=== PATIENT | female | born 1980 | race Two or more races ===

== ENCOUNTER 2024-12-05 18:45 | Inpatient (IN) | payer MEDICARE, MEDICAID ==
[~2024-12-05] VITALS: Ht 157.5 cm; Wt 101.8 kg
[2024-12-05] MEDS: KETOROLAC TROMETH 30 MG/ML 1ML VIAL IM ONE (19:30)
[2024-12-05 19:56] LABS: Hematocrit 39.7 % (36.0-46.0); Hemoglobin 13.0 g/dL (12.2-16.2); Mean Corpuscular Hemoglobin 29.3 pg (28.0-32.0); Mean Corpuscular Volume 89.2 fL (80.0-100.0); Nucleated Red Blood Cells % 0.1 %
[2024-12-05 20:08] LABS: Chloride 107 mmol/L (98-107); Potassium 3.8 mmol/L (3.5-5.1); Sodium 141 mmol/L (136-145)
[2024-12-05 20:09] LABS: Anion Gap 9 (5-15); Calcium 8.9 mg/dL (8.7-10.4); Carbon Dioxide 25 mmol/L (20-31)
[2024-12-05 20:14] LABS: BUN/Creatinine Ratio 7.8 (10.0-20.0)
[2024-12-05 20:15] LABS: Blood Urea Nitrogen 6 mg/dL (9-23); Glucose 111 mg/dL (74-106)
--- NOTE | 2024-12-05 20:28 | DVH ---
Exam: CT CT AB PEL WO CON-NO ORAL OR IV History: R Flank Pain Comparison Study: CT ABD/PEL on DOS: 07/01/24 TECHNIQUE: Multidetector CT of the abdomen and pelvis without IV contrast. Axial, coronal and sagitta l multiplanar reformats were obtained from the axial data set by the technologist. Radiation Dose Information: CT Dose: CTDI volume is 25.57 mGy. Dose-length product is 3.92 mGy*cm FINDINGS: Minimal bibasilar ground-glass opacities which may represent atelectasis/mild pulmonary edema. Visual ized heart is unremarkable. Mild hepatomegaly. Otherwise, liver, spleen, pancreas and adrenal glands are unremarkable. Status pos t cholecystectomy. Kidneys, ureters and urinary bladder are unremarkable. Uterus and adnexa are unremarkable. Stomach is unremarkable. Small bowel loops are unremarkable. Appendix is unremarkable. Moderate amou nt of fecal material within the colon. Sigmoid diverticulosis with questionable minimal adjacent fat stranding. No evidence of intraperitoneal free air or free fluid. No evidence of aortic aneurysm. Mild atherosclerotic calcification of the aorta. No significant lymphadenopathy. Tiny fat containing umbilical hernia. Tiny fat containing bilateral inguinal hernias. Minimal body wa ll edema. No evidence of acute osseous abnormalities. IMPRESSION: Diverticulosis of the sigmoid with Questionable minimal adjacent fat stranding. Correlate for Possibl e mild diverticulitis. Kidneys, ureters and urinary bladder are unremarkable. Moderate amount of fecal material within the colon.
[2024-12-05 20:32] LABS: Urine Protein, UAD Negative (Negative)
--- NOTE | 2024-12-05 20:34 | ED.PDOC ---
History of Present Illness HPI Comments 44 y/o F is BIBA for c/c right back pain, which radiates Chief Complaint: Flank Pain Time Seen by MD: 19:20 Allergies: Coded Allergies: NO KNOWN ALLERGIES (Unverified , 12/05/24) Mode of Arrival: EMS X-Ray, Labs, Meds, VS Vital Signs Date Time Temp Pulse Resp B/P (MAP) Pulse Ox O2 Delivery O2 Flow Rate FiO2 12/05/24 18:56 98.7 98 18 111/61 94 98.7 Lab Test 12/05/24 20:16 12/05/24 19:40 Range/Units Urine Color Colorless Yellow Urine Clarity Clear Clear Urine pH 6.0 5.0-9.0 Urine Specific [place] 1.002 1.001-1.035 Urine Protein Negative Negative Urine Ketones Negative Negative Urine Blood Negative Negative /uL Urine Nitrite Negative Negative Urine Bilirubin Negative Negative Urine Urobilinogen Normal Negative mg/dL Urine Leukocyte Esterase Negative Negative /uL Urine Glucose 3+ H Normal mg/dL White Blood Count 6.5 4.4-10.8 10^3/uL Red Blood Count 4.45 4.0-5.20 10^6/uL Hemoglobin 13.0 12.2-16.2 g/dL Hematocrit 39.7 36.0-46.0 % Mean Corpuscular Volume 89.2 80.0-100.0 fL Mean Corpuscular Hemoglobin 29.3 28.0-32.0 pg Mean Corpuscular Hemoglobin Concent 32.9 32.0-36.0 g/dL Red Cell Distribution Width 14.7 H 11.8-14.3 % Platelet Count 203 140-450 10^3/uL Mean Platelet Volume 10.0 6.9-10.8 fL Neutrophils (%) (Auto) 60.8 37.0-80.0 % Lymphocytes (%) (Auto) 30.7 10.0-50.0 % Monocytes (%) (Auto) 6.4 0.0-12.0 % Eosinophils (%) (Auto) 1.8 0.0-7.0 % Basophils (%) (Auto) 0.3 0.0-2.0 % Neutrophils # (Auto) 4.0 1.6-8.6 10 ^3/uL Lymphocytes # (Auto) 2.0 0.4-5.4 10 ^3/uL Monocytes # (Auto) 0.4 0-1.3 10 ^3/uL Eosinophils # (Auto) 0.1 0-0.8 10 ^3/uL Basophils # (Auto) 0 0-0.2 10 ^3/uL Nucleated Red Blood Cells 0.1 % Sodium Level 141 136-145 mmol/L Potassium Level 3.8 3.5-5.1 mmol/L Chloride Level 107 98-107 mmol/L Carbon Dioxide Level 25 20-31 mmol/L Anion Gap 9 5-15 Blood Urea Nitrogen 6 L 9-23 mg/dL Creatinine 0.77 0.550-1.02 mg/dL Glomerular Filtration Rate Calc 98 >90 mL/min BUN/Creatinine Ratio 7.8 L 10.0-20.0 Serum Glucose 111 H 74-106 mg/dL Calcium Level 8.9 8.7-10.4 mg/dL SEPSIS Sepsis Screen Date sepsis recognized/suspect: Dec 05, 2024 Time Sepsis recognized/suspect: 1851 Recent Procedure: No On Antibiotic Therapy: No Respiratory Rate >20: No Heart Rate >90: Yes Temp<36 C (96.8 F) or >38.3 C: No SBP <90 or MAP <65 mmHG: No New Acute Mental Status Change: No Is the patient on CPAP, BIPAP,: No Physician Orders Ct Ab Pel Wo Con-No Oral Or Iv (12/05/24 19:24) Vital Signs Date Time Temp Pulse Resp B/P (MAP) Pulse Ox O2 Delivery O2 Flow Rate FiO2 12/05/24 18:56 98.7 98 18 111/61 94 98.7 Laboratory Tests Test 12/05/24 19:40 White Blood Count 6.5 10^3/uL (4.4-10.8) I personally scribed for KIRK CARR MD ([email or web address]) on 12/05/24 at 20:34. Electronically submitted by Hiram Hodge ([email or web address]). I personally scribed for KIRK CARR MD ([email or web address]) on 12/05/24 at 20:48. Electronically submitted by Hiram Hodge ([email or web address]). KIRK CARR MD Dec 05, 2024 20:34
--- NOTE | 2024-12-05 20:48 | ED.PDOC ---
History of Present Illness HPI Comments 44-year-old female is brought in by ambulance for chief complaint of right back pain, which radiates to her right flank and right side of abdomen, with the associated nausea. Patient endorses 3 day history of symptoms, following unprovoked and atraumatic onset. She reports 1 episode of emesis on 12/03/24 and none, today. No reported known sick contact, travel, or further pertinent history or events, with the exception of medical history of tubal ligation and "ablation." Denial of any fever, chills, urinary symptoms, or further associated symptoms. REVIEW OF SYSTEMS: General: No fever, no chills, or fatigue HEENT: No sore throat, no earache, no congestion, no neck pain. Cardiac: No chest pain. No palpitations. Lungs: No shortness of breath, no cough. GI: Right upper quadrant and right lower quadrant abdominal pain. Nausea. No vomiting, no diarrhea, no constipation. : Right flank pain. No dysuria, frequency, or urgency. No hematuria. Musculoskeletal: Right back pain. No joint pain , no joint swelling, no extremity edema. Skin: No rash, no itching. Neuro: No headache, no dizziness, no weakness PHYSICAL EXAM: General: Awake, alert and oriented. No acute distress. Skin: Skin in warm, dry and intact. Appropriate color for ethnicity. HEENT: The head is normocephalic and atraumatic. Conjunctivae are clear without exudates or hemorrhage. Sclera is non-icteric. EOM are intact. No signs of nystagmus. Eyelids are normal in appearance without swelling or lesions. Oral mucosa is pink and moist Neck: The neck is supple with normal range of motion. No JVD. Cardiac: Heart rate and rhythm are normal. No murmurs, gallops, or rubs are auscultated. Respiratory: No signs of respiratory distress. Lung sounds are clear in all lobes bilaterally without rales, rhonchi, or wheezes. Abdominal: Right flank, right upper quadrant, and right lower quadrant tenderness. Otherwise, remaining abdomen is soft, non-tender without distention, guarding or rigidity. Bowel sounds are present and normoactive in all four quadrants. Musculoskeletal: Right paraspinal lumbar tenderness. Extremities: Upper and lower extremities are atraumatic in appearance without deformity or edema. 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 Was a procedure done?: No Differential Dx Considerations may include: Differential diagnosis includes but is not limited to pyelonephritis, nephrolithiasis, AAA, musculoskeletal pain, urinary tract infection, cholecystitis, appendicitis, other X-Ray, Labs, Meds, VS Vital Signs Date Time Temp Pulse Resp B/P (MAP) Pulse Ox O2 Delivery O2 Flow Rate FiO2 12/05/24 21:19 99.2 76 14 125/72 (89) 96 99.2 12/05/24 18:56 98.7 98 18 111/61 94 98.7 Lab Test 12/05/24 20:16 12/05/24 19:40 Range/Units Urine Color Colorless Yellow Urine Clarity Clear Clear Urine pH 6.0 5.0-9.0 Urine Specific [place] 1.002 1.001-1.035 Urine Protein Negative Negative Urine Ketones Negative Negative Urine Blood Negative Negative /uL Urine Nitrite Negative Negative Urine Bilirubin Negative Negative Urine Urobilinogen Normal Negative mg/dL Urine Leukocyte Esterase Negative Negative /uL Urine Glucose 3+ H Normal mg/dL White Blood Count 6.5 4.4-10.8 10^3/uL Red Blood Count 4.45 4.0-5.20 10^6/uL Hemoglobin 13.0 12.2-16.2 g/dL Hematocrit 39.7 36.0-46.0 % Mean Corpuscular Volume 89.2 80.0-100.0 fL Mean Corpuscular Hemoglobin 29.3 28.0-32.0 pg Mean Corpuscular Hemoglobin Concent 32.9 32.0-36.0 g/dL Red Cell Distribution Width 14.7 H 11.8-14.3 % Platelet Count 203 140-450 10^3/uL Mean Platelet Volume 10.0 6.9-10.8 fL Neutrophils (%) (Auto) 60.8 37.0-80.0 % Lymphocytes (%) (Auto) 30.7 10.0-50.0 % Monocytes (%) (Auto) 6.4 0.0-12.0 % Eosinophils (%) (Auto) 1.8 0.0-7.0 % Basophils (%) (Auto) 0.3 0.0-2.0 % Neutrophils # (Auto) 4.0 1.6-8.6 10 ^3/uL Lymphocytes # (Auto) 2.0 0.4-5.4 10 ^3/uL Monocytes # (Auto) 0.4 0-1.3 10 ^3/uL Eosinophils # (Auto) 0.1 0-0.8 10 ^3/uL Basophils # (Auto) 0 0-0.2 10 ^3/uL Nucleated Red Blood Cells 0.1 % Sodium Level 141 136-145 mmol/L Potassium Level 3.8 3.5-5.1 mmol/L Chloride Level 107 98-107 mmol/L Carbon Dioxide Level 25 20-31 mmol/L Anion Gap 9 5-15 Blood Urea Nitrogen 6 L 9-23 mg/dL Creatinine 0.77 0.550-1.02 mg/dL Glomerular Filtration Rate Calc 98 >90 mL/min BUN/Creatinine Ratio 7.8 L 10.0-20.0 Serum Glucose 111 H 74-106 mg/dL Hemoglobin A1c 6.6 H <5.7 % A1C Calcium Level 8.9 8.7-10.4 mg/dL Phosphorus Level 4.0 2.4-5.1 mg/dL Magnesium Level 1.9 1.6-2.6 mg/dL Total Bilirubin 0.2 0.2-1.0 mg/dL Direct Bilirubin < 0.1 <0.3 mg/dL Aspartate Amino Transferase (AST) 18 13-40 U/L Alanine Aminotransferase (ALT) 21 7-40 U/L Alkaline Phosphatase 84 46-116 U/L Total Protein 7.1 5.7-8.2 g/dL Albumin 4.4 3.2-4.8 g/dL Lipase 36 12-53 U/L Vitamin B12 Level Pending Vitamin D 25-Hydroxy Pending Thyroid Stimulating Hormone (TSH) 0.50 L 0.55-4.78 uIU/mL Current Medications Medications (Trade) Dose Ordered Sig/Rios Route Start Time Stop Time Status Last Admin Ketorolac Tromethamine (Toradol Injection) 30 mg ONCE ONCE IM 12/05/24 19:30 12/05/24 19:31 DC 12/05/24 19:30 Metronidazole 100 ml @ 100 mls/hr ONCE ONCE IV 12/05/24 21:15 12/05/24 22:14 DC 12/06/24 02:15 Levofloxacin/ Dextrose 100 ml @ 100 mls/hr ONCE ONCE IV 12/05/24 21:15 12/05/24 22:14 DC 12/06/24 02:28 [place] [id number] Ph: [phone] DIAGNOSTIC IMAGING Diagnostic Imaging Report : [id number] Signed PATIENT: FEDERICO BURK ACCT: [id number] UNIT: [id number] : 1980 LOC: ER ROOM / BED: / AGE / SEX: 44 / F ADM STATUS: REG ER SERVICE 23 ORDERING PHYSICIAN: KIRK CARR MD PROCEDURE(s): ABPL - CT AB PEL WO CON-NO ORAL OR IV REASON: R Flank Pain ORDER NUMBER(s): [id number], ACCESSION NUMBER(s): [id number] Exam: CT CT AB PEL WO CON-NO ORAL OR IV History: R Flank Pain Comparison Study: CT ABD/PEL on DOS: 07/01/24 TECHNIQUE: Multidetector CT of the abdomen and pelvis without IV contrast. Axial, coronal and sagittal multiplanar reformats were obtained from the axial data set by the technologist. Radiation Dose Information: CT Dose: CTDI volume is 25.57 mGy. Dose-length product is 3.92 mGy*cm FINDINGS: Minimal bibasilar ground-glass opacities which may represent atelectasis/mild pulmonary edema. Visualized heart is unremarkable. Mild hepatomegaly. Otherwise, liver, spleen, pancreas and adrenal glands are unremarkable. Status post cholecystectomy. Kidneys, ureters and urinary bladder are unremarkable. Uterus and adnexa are unremarkable. Stomach is unremarkable. Small bowel loops are unremarkable. Appendix is unremarkable. Moderate amount of fecal material within the colon. Sigmoid diverticulosis with questionable minimal adjacent fat stranding. No evidence of intraperitoneal free air or free fluid. No evidence of aortic aneurysm. Mild atherosclerotic calcification of the aorta. No significant lymphadenopathy. Tiny fat containing umbilical hernia. Tiny fat containing bilateral inguinal hernias. Minimal body wall edema. No evidence of acute osseous abnormalities. IMPRESSION: Diverticulosis of the sigmoid with Questionable minimal adjacent fat stranding. Correlate for Possible mild diverticulitis. Kidneys, ureters and urinary bladder are unremarkable. Moderate amount of fecal material within the colon. ATED BY: CATALINA GODDARD DO DICTATED DATE/TIME: 12/05/242025 SIGNED BY: CATALINA GODDARD DO SIGNED DATE/TIME: 12/05/242025 CC: Time of 1ST Reevaluation: 19:22 Reevaluation 1ST: Unchanged Patient Education/Counseling: Treatment, Other (Need for admission) Family Education/Counseling: No Family Present SEPSIS Sepsis Screen Date sepsis recognized/suspect: Dec 05, 2024 Time Sepsis recognized/suspect: 1851 Recent Procedure: No On Antibiotic Therapy: No Respiratory Rate >20: No Heart Rate >90: Yes Temp<36 C (96.8 F) or >38.3 C: No SBP <90 or MAP <65 mmHG: No New Acute Mental Status Change: No Is the patient on CPAP, BIPAP,: No Physician Orders Ct Ab Pel Wo Con-No Oral Or Iv (12/05/24 19:24) Saline Lock (12/05/24 21:02) Vitamin B12 (12/05/24 22:52) Vitamin D, 25-Hydroxy (12/05/24 22:52) Vital Signs Date Time Temp Pulse Resp B/P (MAP) Pulse Ox O2 Delivery O2 Flow Rate FiO2 12/05/24 21:19 99.2 76 14 125/72 (89) 96 99.2 12/05/24 18:56 98.7 98 18 111/61 94 98.7 Laboratory Tests Test 12/05/24 19:40 White Blood Count 6.5 10^3/uL (4.4-10.8) Medications Medications Dose Ordered Sig/Rios Route Start Time Stop Time Status Last Admin Dose Admin Ketorolac Tromethamine 30 mg ONCE ONCE IM 12/05/24 19:30 12/05/24 19:31 DC 12/05/24 19:30 Levofloxacin/ Dextrose 100 ml @ 100 mls/hr ONCE ONCE IV 12/05/24 21:15 12/05/24 22:14 DC 12/06/24 02:28 Metronidazole 100 ml @ 100 mls/hr ONCE ONCE IV 12/05/24 21:15 12/05/24 22:14 DC 12/06/24 02:15 Departure 1 Departure Time of Disposition: 21:01 Impression: Primary Impression: Abdominal pain Disposition: HOME / SELF CARE / HOMELESS Condition: Stable Comments 44 year old female with right flank pain. CT scan concerning for possible diverticulitis. Patient admitted to hospitalist service for further treatment, evaluation and monitoring. Critical Care Note Critical Care Time?: No Stability Stability form required: No Heart Score Heart Score: Heart Score Response (Comments) Value History N/A 0 EKG N/A 0 Age N/A 0 Risk Factors N/A 0 Troponin N/A 0 Total 0 I personally scribed for KIRK CARR MD ([email or web address]) on 12/05/24 at 20:48. Electronically submitted by Hiram Hodge ([email or web address]). I personally scribed for KIRK CARR MD ([email or web address]) on 12/05/24 at 21:37. Electronically submitted by Hiram Hodge ([email or web address]). KIRK CARR MD Dec 05, 2024 20:48
[2024-12-05] MEDS ORDERED: DEXTROSE (50%) 50ML SYRG IV PRN (23:15)
--- NOTE | 2024-12-05 23:16 | DVHHP2 ---
History of Present Illness Reason for Visit: Abdominal pain History of Present Illness 44-year-old female presents for evaluation of abdominal pain. Patient presents with a three day history of right flank pain that radiates to her right side of the abdomen. She also reports episodes of nausea. No fever or chills. He also reports some diarrhea. No other acute complaints reported. Past Medical History CVA, diabetes mellitus, hypertension Past Surgical History Tubal ligation Family History Noncontributory Smoke: No ALCOHOL: none Drugs: None Review of Systems Review of Systems Review of systems are currently negative otherwise addressed in HPI. Allergies: Coded Allergies: NO KNOWN ALLERGIES (Unverified , 12/05/24) Medications Current Medications Medications Dose Ordered Sig/Rios Route Start Time Stop Time Status Last Admin Dose Admin Ceftriaxone Sodium 50 ml @ 100 mls/hr DAILY@09 IV 12/06/24 09:00 UNV Metronidazole 100 ml @ 100 mls/hr Q8HR IV 12/06/24 06:00 UNV Levothyroxine Sodium 150 mcg QAM@0600 PO 12/06/24 06:00 UNV Empaglifozin 10 mg DAILY PO 12/06/24 10:00 UNV Amlodipine Besylate 10 mg DAILY PO 12/06/24 10:00 UNV Losartan Potassium 50 mg DAILY PO 12/06/24 10:00 UNV Furosemide 20 mg DAILY PO 12/06/24 10:00 UNV Clonidine HCl 0.1 mg Q6HP PRN PO 12/05/24 23:15 UNV Atorvastatin Calcium 40 mg HS PO 12/06/24 22:00 UNV Pantoprazole Sodium 40 mg DAILY IV 12/06/24 10:00 UNV Diagnostic Test (Pha) 1 strip Q6HR 12/06/24 00:00 UNV Insulin Human Regular Q6HR SC 12/06/24 00:00 UNV Dextrose 50 ml UD PRN IV 12/05/24 23:15 UNV Acetaminophen/ Hydrocodone Bitart 1 tab Q4HP PRN PO 12/05/24 23:15 UNV Ondansetron HCl 4 mg Q4HP PRN IV 12/05/24 23:15 UNV Acetaminophen 650 mg Q6HP PRN PO 12/05/24 23:15 UNV Exam Vital Signs Vital Signs Date Time Temp Pulse Resp B/P (MAP) Pulse Ox O2 Delivery O2 Flow Rate FiO2 12/05/24 21:19 99.2 76 14 125/72 (57) 96 99.2 Exam Gen: 44-year-old female in mild distress. Skin: Warm, dry, normal color and texture, no rash. HEENT: Normocephalic atraumatic, mucous membranes moist and pink. Neck: Cervical and supraclavicular nodes normal without enlargement, trachea is midline, thyroid gland is normal without masses. Pulmonary: Clear to auscultation and percussion bilaterally. Cardiac: Regular rate and rhythm. No murmur Abdomen: Soft, nontender, nondistended, bowel sounds present all 4 quadrants, no guarding, no rigidity, no organomegaly. Extremities: No cyanosis, clubbing, no edema Neuro: Cranial nerves II through XII grossly intact, normal affect and speech, no focal motor deficits. Labs/Xrays ORDERING PHYSICIAN: KIRK CARR MD PROCEDURE(s): ABPL - CT AB PEL WO CON-NO ORAL OR IV REASON: R Flank Pain ORDER NUMBER(s): [id number], ACCESSION NUMBER(s): [id number] Exam: CT CT AB PEL WO CON-NO ORAL OR IV History: R Flank Pain Comparison Study: CT ABD/PEL on DOS: 07/01/24 TECHNIQUE: Multidetector CT of the abdomen and pelvis without IV contrast. Axial, coronal and sagittal multiplanar reformats were obtained from the axial data set by the technologist. Radiation Dose Information: CT Dose: CTDI volume is 25.57 mGy. Dose-length product is 3.92 mGy*cm FINDINGS: Minimal bibasilar ground-glass opacities which may represent atelectasis/mild pulmonary edema. Visualized heart is unremarkable. Mild hepatomegaly. Otherwise, liver, spleen, pancreas and adrenal glands are unremarkable. Status post cholecystectomy. Kidneys, ureters and urinary bladder are unremarkable. Uterus and adnexa are unremarkable. Stomach is unremarkable. Small bowel loops are unremarkable. Appendix is unremarkable. Moderate amount of fecal material within the colon. Sigmoid diverticulosis with questionable minimal adjacent fat stranding. No evidence of intraperitoneal free air or free fluid. No evidence of aortic aneurysm. Mild atherosclerotic calcification of the aorta. No significant lymphadenopathy. Tiny fat containing umbilical hernia. Tiny fat containing bilateral inguinal hernias. Minimal body wall edema. No evidence of acute osseous abnormalities. IMPRESSION: Diverticulosis of the sigmoid with Questionable minimal adjacent fat stranding. Correlate for Possible mild diverticulitis. Kidneys, ureters and urinary bladder are unremarkable. Moderate amount of fecal material within the colon. ATED BY: CATALINA GODDARD DO Labs Test 12/05/24 20:16 12/05/24 19:40 Range/Units Urine Color Colorless Yellow Urine Clarity Clear Clear Urine pH 6.0 5.0-9.0 Urine Specific [place] 1.002 1.001-1.035 Urine Protein Negative Negative Urine Ketones Negative Negative Urine Blood Negative Negative /uL Urine Nitrite Negative Negative Urine Bilirubin Negative Negative Urine Urobilinogen Normal Negative mg/dL Urine Leukocyte Esterase Negative Negative /uL Urine Glucose 3+ H Normal mg/dL White Blood Count 6.5 4.4-10.8 10^3/uL Red Blood Count 4.45 4.0-5.20 10^6/uL Hemoglobin 13.0 12.2-16.2 g/dL Hematocrit 39.7 36.0-46.0 % Mean Corpuscular Volume 89.2 80.0-100.0 fL Mean Corpuscular Hemoglobin 29.3 28.0-32.0 pg Mean Corpuscular Hemoglobin Concent 32.9 32.0-36.0 g/dL Red Cell Distribution Width 14.7 H 11.8-14.3 % Platelet Count 203 140-450 10^3/uL Mean Platelet Volume 10.0 6.9-10.8 fL Neutrophils (%) (Auto) 60.8 37.0-80.0 % Lymphocytes (%) (Auto) 30.7 10.0-50.0 % Monocytes (%) (Auto) 6.4 0.0-12.0 % Eosinophils (%) (Auto) 1.8 0.0-7.0 % Basophils (%) (Auto) 0.3 0.0-2.0 % Neutrophils # (Auto) 4.0 1.6-8.6 10 ^3/uL Lymphocytes # (Auto) 2.0 0.4-5.4 10 ^3/uL Monocytes # (Auto) 0.4 0-1.3 10 ^3/uL Eosinophils # (Auto) 0.1 0-0.8 10 ^3/uL Basophils # (Auto) 0 0-0.2 10 ^3/uL Nucleated Red Blood Cells 0.1 % Sodium Level 141 136-145 mmol/L Potassium Level 3.8 3.5-5.1 mmol/L Chloride Level 107 98-107 mmol/L Carbon Dioxide Level 25 20-31 mmol/L Anion Gap 9 5-15 Blood Urea Nitrogen 6 L 9-23 mg/dL Creatinine 0.77 0.550-1.02 mg/dL Glomerular Filtration Rate Calc 98 >90 mL/min BUN/Creatinine Ratio 7.8 L 10.0-20.0 Serum Glucose 111 H 74-106 mg/dL Calcium Level 8.9 8.7-10.4 mg/dL SEPSIS Sepsis Screen Date sepsis recognized/suspect: Dec 05, 2024 Time Sepsis recognized/suspect: 1851 Recent Procedure: No On Antibiotic Therapy: No Respiratory Rate >20: No Heart Rate >90: Yes Temp<36 C (96.8 F) or >38.3 C: No SBP <90 or MAP <65 mmHG: No New Acute Mental Status Change: No Is the patient on CPAP, BIPAP,: No Physician Orders Ct Ab Pel Wo Con-No Oral Or Iv (12/05/24 19:24) Saline Lock (12/05/24 21:02) Vitamin B12 (12/05/24 22:52) Vitamin D, 25-Hydroxy (12/05/24 22:52) Thyroid Stimulating Hormone (12/05/24 22:52) Hemoglobin A1c (12/05/24 22:52) Phosphorus (12/05/24 22:52) Magnesium (12/05/24 22:52) Lipase (12/05/24 22:52) Lactic Acid W/ Reflex Order (12/05/24 22:52) Hepatic Panel (12/05/24 19:40) Ceftriaxone 1gm/50ml (Rocephin) (12/06/24 09:00) Metronidazole 500mg/100ml (Flagyl 500mg/ (12/06/24 06:00) * Gi Dvh Binder Operator (12/05/24 23:01) Levothyroxine Tablet (Synthroid Tablet) (12/06/24 06:00) Empagliflozin (Jardiance) (12/06/24 10:00) Amlodipine Tablet (Norvasc Tablet) (12/06/24 10:00) Losartan Tablet (Cozaar Tablet) (12/06/24 10:00) Furosemide Tablet (Lasix Tablet) (12/06/24 10:00) Clonidine Hcl Tablet (Catapres Tablet) (12/05/24 23:15) Atorvastatin (Lipitor) (12/06/24 22:00) Pantoprazole (Protonix) (12/06/24 10:00) Pantoprazole (Protonix) (12/05/24 23:15) Stool Bacterial Culture (12/05/24 23:01) Basic Metabolic Panel (12/06/24 04:00) Glucose Blood (Accu-Chek Comfort Curve T (12/06/24 00:00) Insulin R (Human) (Insulin R) (12/06/24 00:00) Dextrose 50% Syringe (12/05/24 23:15) Admit (12/05/24 23:01) Hydrocodone-Acet 5/325mg Tab (Dubois 5/32 (12/05/24 23:15) Ondansetron Hcl (Zofran) (12/05/24 23:15) Complete Blood Count (12/06/24 04:00) Condition: Stable (12/05/24 23:01) Acetaminophen Tablet (Tylenol Tablet) (12/05/24 23:15) Clear Liq Diet (12/06/24 Breakfast) Bedrest With Bathroom Privileg (12/05/24 23:01) Vital Signs Date Time Temp Pulse Resp B/P (MAP) Pulse Ox O2 Delivery O2 Flow Rate FiO2 12/05/24 21:19 99.2 76 14 125/72 (89) 96 99.2 12/05/24 18:56 98.7 98 18 111/61 94 98.7 Laboratory Tests Test 12/05/24 19:40 White Blood Count 6.5 10^3/uL (4.4-10.8) Medications Medications Dose Ordered Sig/Rios Route Start Time Stop Time Status Last Admin Dose Admin Ketorolac Tromethamine 30 mg ONCE ONCE IM 12/05/24 19:30 12/05/24 19:31 DC 12/05/24 19:30 30 MG Assessment/Plan Assessment/Plan Assessment Acute abdominal pain ? Acute diverticulitis Diabetes mellitus History of CVA with left-sided deficits Morbid obesity Hypertension Plan Admit the patient to Med surge to the hospitalist GI consult Clear liquid diet Pain management Rocephin/Flagyl Resume home medications Continue treatment per orders Plan discussed with: Patient My Orders Orders - FLOR ANDERS AGACNP Procedure Category Date Status Time Ceftriaxone 1gm/50ml PHA 12/06/24 Logged (Rocephin) 09:00 Metronidazole PHA 12/06/24 Logged 500mg/100ml (Flagyl 06:00 * Gi Dvh Binder Operator CONS 12/05/24 Transmitted 23:01 Levothyroxine Tablet PHA 12/06/24 Logged (Synthroid Tablet) 06:00 Empagliflozin PHA 12/06/24 Logged (Jardiance) 10:00 Amlodipine Tablet PHA 12/06/24 Logged (Norvasc Tablet) 10:00 Losartan Tablet PHA 12/06/24 Logged (Cozaar Tablet) 10:00 Furosemide Tablet PHA 12/06/24 Logged (Lasix Tablet) 10:00 Clonidine Hcl Tablet PHA 12/05/24 Logged (Catapres Tablet) 23:15 Atorvastatin (Lipitor) PHA 12/06/24 Logged 22:00 Pantoprazole PHA 12/06/24 Logged (Protonix) 10:00 Pantoprazole PHA 12/05/24 Logged (Protonix) 23:15 Stool Bacterial GILMER 12/05/24 Logged Culture 23:01 Basic Metabolic Panel LAB 12/06/24 Verified 04:00 Glucose Blood PHA 12/06/24 Logged (Accu-Chek Comfort 00:00 Insulin R (Human) PHA 12/06/24 Logged (Insulin R) 00:00 Dextrose 50% Syringe PHA 12/05/24 Logged 23:15 Admit ADMIT 12/05/24 Transmitted 23:01 Hydrocodone-Acet PHA 12/05/24 Logged 5/325mg Tab (Dubois 23:15 Ondansetron Hcl PHA 12/05/24 Logged (Zofran) 23:15 Complete Blood Count LAB 12/06/24 Verified 04:00 Condition: Stable [place]O 12/05/24 In Process 23:01 Acetaminophen Tablet PHA 12/05/24 Logged (Tylenol Tablet) 23:15 Clear Liq Diet DIET 12/06/24 Transmitted Breakfast Bedrest With Bathroom CAYETANO 12/05/24 In Process Privileg 23:01 Date of Service: Dec 05, 2024 Billing Provider: FLOR ANDERS Common Visit Codes: [id number] INP/OBS CARE (HIGH) FLOR ANDERS Dec 05, 2024 23:16
[2024-12-05 23:29] LABS: Alanine Aminotransferase 21 U/L (7-40); Albumin 4.4 g/dL (3.2-4.8); Alkaline Phosphatase 84 U/L (46-116); Magnesium 1.9 mg/dL (1.6-2.6); Total Protein 7.1 g/dL (5.7-8.2)
[2024-12-05 23:37] LABS: Bilirubin, Direct < 0.1 mg/dL (<0.3); Bilirubin, Total 0.2 mg/dL (0.2-1.0)
[2024-12-05 23:48] LABS: Lipase 36 U/L (12-53)
[2024-12-06] MEDS: ACCU-CHEK COMFORT CURVE STRIP VI SCH (01:11)
[2024-12-06] MEDS: InsuLIN REG 1unit/0.01ml Soln (100units/ml) SC SCH (01:38)
[2024-12-06] MEDS: PANTOPRAZOLE 40 MG/10 ML VIAL INJ IV ONE (02:18)
[2024-12-06] MEDS: HYDROcodone-ACET 5/325MG TAB PO PRN (05:38)
[2024-12-06] MEDS: ACETAMINOPHEN 325 MG TAB PO PRN (05:38)
[2024-12-06] MEDS: LEVOTHYROXINE SODIUM 50 MCG TAB PO SCH (06:00)
[2024-12-06] MEDS: ONDANSETRON HCL 4 MG/2 ML VIAL IV PRN (07:12)
[2024-12-06 08:16] LABS: Anion Gap 12 (5-15); Carbon Dioxide 23 mmol/L (20-31); Chloride 103 mmol/L (98-107); Potassium 4.9 mmol/L (3.5-5.1); Sodium 138 mmol/L (136-145)
[2024-12-06 08:17] LABS: Calcium 9.1 mg/dL (8.7-10.4)
[2024-12-06 08:20] LABS: Hematocrit 42.1 % (36.0-46.0); Hemoglobin 13.9 g/dL (12.2-16.2); Mean Corpuscular Hemoglobin 29.6 pg (28.0-32.0); Mean Corpuscular Volume 89.4 fL (80.0-100.0); Nucleated Red Blood Cells % 0.1 %
[2024-12-06 08:22] LABS: BUN/Creatinine Ratio 11.5 (10.0-20.0)
[2024-12-06 08:23] LABS: Blood Urea Nitrogen 9 mg/dL (9-23); Glucose 117 mg/dL (74-106)
[2024-12-06] MEDS: FUROSEMIDE 20 MG TAB PO SCH (10:00)
[2024-12-06] MEDS: EMPAGLIFLOZIN 10 MG TAB PO SCH (10:00)
[2024-12-06] MEDS: LOSARTAN POTASSIUM 50 MG TAB PO SCH (10:00)
[2024-12-06] MEDS: PANTOPRAZOLE 40 MG/10 ML VIAL INJ IV SCH (10:17)
[2024-12-06 13:00] VITALS: BP 104/65; PULSE 73; RESP 12; TEMP 97.1; O2SAT 96
[2024-12-06 13:07] VITALS: BP 132/88; PULSE 74; TEMP 98.5; O2SAT 96
[2024-12-06] MEDS: DOCUSATE SOD 100 MG CAP PO ONE (13:15)
--- NOTE | 2024-12-06 13:15 | DVHINCON2 ---
GI Consult Consult Note GI consult note Date of Consultation: 12/06/2024 Chief Complaint: Diverticulitis Referring Physician: Sergei FITZPATRICK H&P: 44-year-old female admitted with complains of abdominal pain, for the past four days. Patient had nausea no vomiting. Denies fevers or chills. Regular bowel movements per patient. Denies history of constipation. No colonoscopy in past Past Medical History: CVA, diabetes mellitus, hypertension Past Surgical History: Tubal ligation Social History: NO smoking, drinking ETOH and use of illegal drugs. Family History: Noncontributory Review of Systems: Constitutional: no fever, chill, weight loss HEENT: no eye pain, no hearing loss, no oral lesion, no scleral icterus Heart: no chest pain, no chest pressure Lung: no cough, no dyspnea with exertion Abdomen: see HPI Physical exam: General: NAD, AAOX3 Chest: lung cadena clear to auscultation Heart: RRR, no murmur Abdomen: non-distended, mild left sided tenderness to palpation, +BS Labs: Labs Test 12/06/24 09:31 12/06/24 07:50 12/05/24 23:22 12/05/24 20:16 Range/Units POC Glucose 121 H 70-106 mg/dl White Blood Count 7.3 4.4-10.8 10^3/uL Red Blood Count 4.71 4.0-5.20 10^6/uL Hemoglobin 13.9 12.2-16.2 g/dL Hematocrit 42.1 36.0-46.0 % Mean Corpuscular Volume 89.4 80.0-100.0 fL Mean Corpuscular Hemoglobin 29.6 28.0-32.0 pg Mean Corpuscular Hemoglobin Concent 33.1 32.0-36.0 g/dL Red Cell Distribution Width 14.6 H 11.8-14.3 % Platelet Count 98 L 140-450 10^3/uL Mean Platelet Volume 10.6 6.9-10.8 fL Neutrophils (%) (Auto) 65.9 37.0-80.0 % Lymphocytes (%) (Auto) 26.0 10.0-50.0 % Monocytes (%) (Auto) 6.5 0.0-12.0 % Eosinophils (%) (Auto) 1.3 0.0-7.0 % Basophils (%) (Auto) 0.3 0.0-2.0 % Neutrophils # (Auto) 4.8 1.6-8.6 10 ^3/uL Lymphocytes # (Auto) 1.9 0.4-5.4 10 ^3/uL Monocytes # (Auto) 0.5 0-1.3 10 ^3/uL Eosinophils # (Auto) 0.1 0-0.8 10 ^3/uL Basophils # (Auto) 0 0-0.2 10 ^3/uL Nucleated Red Blood Cells 0.1 % Sodium Level 138 136-145 mmol/L Potassium Level 4.9 3.5-5.1 mmol/L Chloride Level 103 98-107 mmol/L Carbon Dioxide Level 23 20-31 mmol/L Anion Gap 12 5-15 Blood Urea Nitrogen 9 9-23 mg/dL Creatinine 0.78 0.550-1.02 mg/dL Glomerular Filtration Rate Calc 97 >90 mL/min BUN/Creatinine Ratio 11.5 10.0-20.0 Serum Glucose 117 H 74-106 mg/dL Calcium Level 9.1 8.7-10.4 mg/dL Lactic Acid Level 1.5 0.4-2.0 mmol/L Urine Color Colorless Yellow Urine Clarity Clear Clear Urine pH 6.0 5.0-9.0 Urine Specific [place] 1.002 1.001-1.035 Urine Protein Negative Negative Urine Ketones Negative Negative Urine Blood Negative Negative /uL Urine Nitrite Negative Negative Urine Bilirubin Negative Negative Urine Urobilinogen Normal Negative mg/dL Urine Leukocyte Esterase Negative Negative /uL Urine Glucose 3+ H Normal mg/dL Test 12/05/24 19:40 Range/Units Hemoglobin A1c 6.6 H <5.7 % A1C Phosphorus Level 4.0 2.4-5.1 mg/dL Magnesium Level 1.9 1.6-2.6 mg/dL Total Bilirubin 0.2 0.2-1.0 mg/dL Direct Bilirubin < 0.1 <0.3 mg/dL Aspartate Amino Transferase (AST) 18 13-40 U/L Alanine Aminotransferase (ALT) 21 7-40 U/L Alkaline Phosphatase 84 46-116 U/L Total Protein 7.1 5.7-8.2 g/dL Albumin 4.4 3.2-4.8 g/dL Lipase 36 12-53 U/L Vitamin B12 Level 312 211-911 pg/mL Vitamin D 25-Hydroxy 40.4 30.0-100 ng/mL Thyroid Stimulating Hormone (TSH) 0.50 L 0.55-4.78 uIU/mL Imaging: CT abdomen pelvis IMPRESSION: Diverticulosis of the sigmoid with Questionable minimal adjacent fat stranding. Correlate for Possible mild diverticulitis. Kidneys, ureters and urinary bladder are unremarkable. Moderate amount of fecal material within the colon. Assessment: Diverticulitis Abdominal pain Constipation Plan: Discussed with Dr. Chavez IV antibiotics Clear liquid diet Colace We will continue to follow patient Thank you for this consult Date of Service: Dec 06, 2024 Billing Provider: LADAN NAPIER Common Visit Codes: CONSULT ONLY Consultation Codes: [id number] CONSULT <60MIN LAADN NAPIER Dec 06, 2024 13:15
--- NOTE | 2024-12-06 13:35 | DVHPN2 ---
Reviewed: H&P Changes from previous H/P or p: No Changes General: Per HPI Objective Vitals Vital Signs Date Time Temp Pulse Resp B/P (MAP) Pulse Ox O2 Delivery O2 Flow Rate FiO2 12/06/24 10:00 118/100 12/06/24 00:26 98.8 79 16 95 98.8 Exam Gen: 44-year-old female in mild distress. Skin: Warm, dry, normal color and texture, no rash. HEENT: Normocephalic atraumatic, mucous membranes moist and pink. Neck: Cervical and supraclavicular nodes normal without enlargement, trachea is midline, thyroid gland is normal without masses. Pulmonary: Clear to auscultation and percussion bilaterally. Cardiac: Regular rate and rhythm. No murmur Abdomen: Soft, nontender, nondistended, bowel sounds present all 4 quadrants, no guarding, no rigidity, no organomegaly. flank TTP right Extremities: No cyanosis, clubbing, no edema Neuro: Cranial nerves II through XII grossly intact, normal affect and speech, no focal motor deficits. Medications Current Medications Medications Dose Ordered Sig/Rios Route Start Time Stop Time Status Last Admin Dose Admin Ceftriaxone Sodium 50 ml @ 100 mls/hr DAILY@09 IV 12/06/24 09:00 12/06/24 10:25 100 MLS/HR Metronidazole 100 ml @ 100 mls/hr Q8HR IV 12/06/24 06:00 12/06/24 09:45 100 MLS/HR Levothyroxine Sodium 150 mcg QAM@0600 PO 12/06/24 06:00 12/06/24 06:00 150 MCG Empaglifozin 10 mg DAILY PO 12/06/24 10:00 12/06/24 10:00 10 MG Amlodipine Besylate 10 mg DAILY PO 12/06/24 10:00 12/06/24 10:00 10 MG Losartan Potassium 50 mg DAILY PO 12/06/24 10:00 12/06/24 10:00 50 MG Furosemide 20 mg DAILY PO 12/06/24 10:00 12/06/24 10:00 20 MG Clonidine HCl 0.1 mg Q6HP PRN PO 12/05/24 23:15 Atorvastatin Calcium 40 mg HS PO 12/06/24 22:00 Pantoprazole Sodium 40 mg DAILY IV 12/06/24 10:00 12/06/24 10:17 40 MG Diagnostic Test (Pha) 1 strip Q6HR 12/06/24 00:00 12/06/24 01:11 1 STRIP Insulin Human Regular Q6HR SC 12/06/24 00:00 Dextrose 50 ml UD PRN IV 12/05/24 23:15 Acetaminophen/ Hydrocodone Bitart 1 tab Q4HP PRN PO 12/05/24 23:15 12/06/24 05:38 1 TAB Ondansetron HCl 4 mg Q4HP PRN IV 12/05/24 23:15 12/06/24 07:12 4 MG Acetaminophen 650 mg Q6HP PRN PO 12/05/24 23:15 12/06/24 05:38 650 MG Laboratory Results Laboratory Tests 12/06/24 07:50 Chemistry Test 12/05/24 19:40 12/06/24 07:50 Albumin 4.4 g/dL (3.2-4.8) Calcium Level 8.9 mg/dL (8.7-10.4) 9.1 mg/dL (8.7-10.4) Magnesium Level 1.9 mg/dL (1.6-2.6) Phosphorus Level 4.0 mg/dL (2.4-5.1) Total Protein 7.1 g/dL (5.7-8.2) Lipid panel Test 12/05/24 19:40 Lipase 36 U/L (12-53) LFT Test 12/05/24 19:40 Alanine Aminotransferase (ALT) 21 U/L (7-40) Alkaline Phosphatase 84 U/L (46-116) Aspartate Amino Transferase (AST) 18 U/L (13-40) Direct Bilirubin < 0.1 mg/dL (<0.3) Total Bilirubin 0.2 mg/dL (0.2-1.0) HgA1c, TSH Test 12/05/24 19:40 Hemoglobin A1c 6.6 % A1C (<5.7) H Thyroid Stimulating Hormone (TSH) 0.50 uIU/mL (0.55-4.78) L Urinalysis Test 12/05/24 20:16 Urine Color Colorless (Yellow) Urine Clarity Clear (Clear) Urine pH 6.0 (5.0-9.0) Urine Specific [place] 1.002 (1.001-1.035) Urine Protein Negative (Negative) Urine Ketones Negative (Negative) Urine Blood Negative /uL (Negative) Urine Nitrite Negative (Negative) Urine Bilirubin Negative (Negative) Urine Urobilinogen Normal mg/dL (Negative) Urine Leukocyte Esterase Negative /uL (Negative) Urine Glucose 3+ mg/dL (Normal) H Labs and/or images reviewed: Labs reviewed by me, Image(s) reviewed by me Assessment/Plan Assessment/Plan 44-year-old female w pmhx CVA, diabetes mellitus, hypertension presents for evaluation of abdominal pain. Patient presents with a three day history of right flank pain that radiates to her right side of the abdomen. She also reports episodes of nausea. No fever or chills. He also reports some diarrhea. No other acute complaints reported. 12/06: Patient continues to have pain, tender to palpation right flank. UA is unconcerning for UTI, CVA tenderness is unclear as it could also be musculoskeletal in that region in the right lower posterior ribs. Possible musculoskeletal versus diverticulitis although diverticulitis present have pain in flank and ribs. We will start baclofen 10 b.i.d., continue IV antibiotics for possible diverticulitis. Patient continues to have nausea. Pyelonephritis is unlikely but unable to rule out at this point as patient's pain and nausea could be evidence of pyelo but there is no evidence of UTI on urine. dx: Acute diverticulitis Flank pain, musculoskeletal likely History CVA history diabetes type 2 HTN plan: ivf iv abx prn anaelgesia prn antiemetics baclofen 10 bid medsurg full code Plan discussed with: Patient Date of Service: Dec 06, 2024 Billing Provider: SURINDER BURROWS MD Common Visit Codes: [id number] INP/OBS CARE(HIGH) SURINDER BURROWS MD Dec 06, 2024 13:35
[2024-12-06 17:01] VITALS: BP 117/69; PULSE 91; RESP 16; TEMP 98.1; O2SAT 96
[2024-12-06 21:39] VITALS: BP 121/71; PULSE 85; RESP 20; TEMP 98.1; O2SAT 95
[2024-12-06] MEDS: ATORVASTATIN 20 MG TAB PO SCH (22:04)
[2024-12-06] MEDS: BACLOFEN 10 MG TAB PO SCH (22:04)
[2024-12-07] VITALS (8 sets, daily range): BP systolic 113–155; BP diastolic 59–80; PULSE 84–123; RESP 18–20; TEMP 97.6–98.3; O2SAT 83–97
[2024-12-07 08:14] LABS: Hematocrit 39.8 % (36.0-46.0); Hemoglobin 13.5 g/dL (12.2-16.2); Mean Corpuscular Hemoglobin 29.7 pg (28.0-32.0); Mean Corpuscular Volume 87.7 fL (80.0-100.0); Nucleated Red Blood Cells % 0.1 %
[2024-12-07 08:35] LABS: Chloride 105 mmol/L (98-107); Potassium 3.6 mmol/L (3.5-5.1)
[2024-12-07 08:40] LABS: Carbon Dioxide 25 mmol/L (20-31)
[2024-12-07 08:41] LABS: Calcium 8.7 mg/dL (8.7-10.4)
[2024-12-07 08:45] LABS: Alkaline Phosphatase 87 U/L (46-116)
[2024-12-07 08:46] LABS: Total Protein 6.5 g/dL (5.7-8.2)
[2024-12-07 08:47] LABS: Alanine Aminotransferase 35 U/L (7-40); Albumin 4.1 g/dL (3.2-4.8)
[2024-12-07 08:48] LABS: Bilirubin, Total 0.3 mg/dL (0.2-1.0)
[2024-12-07 08:53] LABS: Anion Gap 10 (5-15); BUN/Creatinine Ratio 7.6 (10.0-20.0); Blood Urea Nitrogen < 5 mg/dL (9-23); Glucose 134 mg/dL (74-106); Sodium 140 mmol/L (136-145)
--- NOTE | 2024-12-07 14:12 | DVHPN2 ---
Subjective Patient complains of increase upper abdominal pain Patient has history of GERD No bowel movement for last three days Reviewed: H&P Changes from previous H/P or p: No Changes General: Per HPI Objective Vitals Vital Signs Date Time Temp Pulse Resp B/P (MAP) Pulse Ox O2 Delivery O2 Flow Rate FiO2 12/07/24 14:05 149/128 12/07/24 08:40 98.0 86 19 83 98.0 12/07/24 08:00 Room Air* 0 21 Intake/Output Intake and Output 12/07/24 07:00 Intake Total 1618 ml Balance 1618 ml Intake Oral 1518 ml IV Total 100 ml # Voids 3 General Appearance: Alert, Oriented X3, No acute distress Lungs: Clear to auscultation, Normal air movement, Other Cardiovascular: Regular rate, Normal S1, Normal S2, No murmurs, Gallops, Rubs, Other Abdomen: Normal bowel sounds, Soft, No tenderness, No hepatospenomegaly, No masses, Other (Mild epigastric tenderness) Medications Current Medications Medications Dose Ordered Sig/Rios Route Start Time Stop Time Status Last Admin Dose Admin Ceftriaxone Sodium 50 ml @ 100 mls/hr DAILY@09 IV 12/06/24 09:00 12/07/24 09:00 100 MLS/HR Metronidazole 100 ml @ 100 mls/hr Q8HR IV 12/06/24 06:00 12/07/24 14:05 100 MLS/HR Levothyroxine Sodium 150 mcg QAM@0600 PO 12/06/24 06:00 12/07/24 05:44 150 MCG Empaglifozin 10 mg DAILY PO 12/06/24 10:00 12/07/24 09:00 10 MG Amlodipine Besylate 10 mg DAILY PO 12/06/24 10:00 12/07/24 09:03 10 MG Losartan Potassium 50 mg DAILY PO 12/06/24 10:00 12/07/24 14:05 50 MG Furosemide 20 mg DAILY PO 12/06/24 10:00 12/07/24 09:02 20 MG Clonidine HCl 0.1 mg Q6HP PRN PO 12/05/24 23:15 Atorvastatin Calcium 40 mg HS PO 12/06/24 22:00 12/06/24 22:04 40 MG Pantoprazole Sodium 40 mg DAILY IV 12/06/24 10:00 12/07/24 09:00 40 MG Diagnostic Test (Pha) 1 strip Q6HR 12/06/24 00:00 12/07/24 05:44 1 STRIP Insulin Human Regular Q6HR SC 12/06/24 00:00 12/07/24 05:50 2 UNITS Dextrose 50 ml UD PRN IV 12/05/24 23:15 Acetaminophen/ Hydrocodone Bitart 1 tab Q4HP PRN PO 12/05/24 23:15 12/07/24 12:33 1 TAB Ondansetron HCl 4 mg Q4HP PRN IV 12/05/24 23:15 12/07/24 13:25 4 MG Acetaminophen 650 mg Q6HP PRN PO 12/05/24 23:15 12/06/24 05:38 650 MG Baclofen 10 mg BID PO 12/06/24 22:00 12/07/24 09:02 10 MG Docusate Sodium 100 mg BID PO 12/07/24 22:00 Laboratory Results Laboratory Tests 12/07/24 07:24 Chemistry Test 12/07/24 07:24 Albumin 4.1 g/dL (3.2-4.8) Calcium Level 8.7 mg/dL (8.7-10.4) Total Protein 6.5 g/dL (5.7-8.2) LFT Test 12/07/24 07:24 Alanine Aminotransferase (ALT) 35 U/L (7-40) Alkaline Phosphatase 87 U/L (46-116) Aspartate Amino Transferase (AST) 31 U/L (13-40) Total Bilirubin 0.3 mg/dL (0.2-1.0) Urinalysis Test 12/05/24 20:16 Urine Color Colorless (Yellow) Urine Clarity Clear (Clear) Urine pH 6.0 (5.0-9.0) Urine Specific [place] 1.002 (1.001-1.035) Urine Protein Negative (Negative) Urine Ketones Negative (Negative) Urine Blood Negative /uL (Negative) Urine Nitrite Negative (Negative) Urine Bilirubin Negative (Negative) Urine Urobilinogen Normal mg/dL (Negative) Urine Leukocyte Esterase Negative /uL (Negative) Urine Glucose 3+ mg/dL (Normal) H Assessment/Plan Assessment/Plan Diverticulitis Abdominal pain Constipation History of GERD Plan: Discussed with Dr. Chavez Protonix and Carafate Continue clear liquid diet Colace Plan discussed with: Patient, Other (RN) Date of Service: Dec 07, 2024 Billing Provider: LADAN NAPIER Common Visit Codes: [id number] INP/OBS CARE(HIGH) LADAN NAPIER Dec 07, 2024 14:12
--- NOTE | 2024-12-07 16:19 | DVHPN2 ---
Subjective Still having pain, seen at bedside today. Reviewed: H&P Changes from previous H/P or p: No Changes General: Per HPI Objective Vitals Vital Signs Date Time Temp Pulse Resp B/P (MAP) Pulse Ox O2 Delivery O2 Flow Rate FiO2 12/07/24 14:05 149/128 12/07/24 08:40 98.0 86 19 83 98.0 12/07/24 08:00 Room Air* 0 21 Intake/Output Intake and Output 12/07/24 07:00 Intake Total 1618 ml Balance 1618 ml Intake Oral 1518 ml IV Total 100 ml # Voids 3 Exam Gen: 44-year-old female in mild distress. Skin: Warm, dry, normal color and texture, no rash. HEENT: Normocephalic atraumatic, mucous membranes moist and pink. Neck: Cervical and supraclavicular nodes normal without enlargement, trachea is midline, thyroid gland is normal without masses. Pulmonary: Clear to auscultation and percussion bilaterally. Cardiac: Regular rate and rhythm. No murmur Abdomen: Soft, nontender, nondistended, bowel sounds present all 4 quadrants, no guarding, no rigidity, no organomegaly. flank TTP right Extremities: No cyanosis, clubbing, no edema Neuro: Cranial nerves II through XII grossly intact, normal affect and speech, no focal motor deficits. General Appearance: Alert, Oriented X3, No acute distress Lungs: Clear to auscultation, Normal air movement, Other Cardiovascular: Regular rate, Normal S1, Normal S2, No murmurs, Gallops, Rubs, Other Abdomen: Normal bowel sounds, Soft, No tenderness, No hepatospenomegaly, No masses, Other (Mild epigastric tenderness) Medications Current Medications Medications Dose Ordered Sig/Rios Route Start Time Stop Time Status Last Admin Dose Admin Ceftriaxone Sodium 50 ml @ 100 mls/hr DAILY@09 IV 12/06/24 09:00 12/07/24 09:00 100 MLS/HR Metronidazole 100 ml @ 100 mls/hr Q8HR IV 12/06/24 06:00 12/07/24 14:05 100 MLS/HR Levothyroxine Sodium 150 mcg QAM@0600 PO 12/06/24 06:00 12/07/24 05:44 150 MCG Empaglifozin 10 mg DAILY PO 12/06/24 10:00 12/07/24 09:00 10 MG Amlodipine Besylate 10 mg DAILY PO 12/06/24 10:00 12/07/24 09:03 10 MG Losartan Potassium 50 mg DAILY PO 12/06/24 10:00 12/07/24 14:05 50 MG Furosemide 20 mg DAILY PO 12/06/24 10:00 12/07/24 09:02 20 MG Clonidine HCl 0.1 mg Q6HP PRN PO 12/05/24 23:15 Atorvastatin Calcium 40 mg HS PO 12/06/24 22:00 12/06/24 22:04 40 MG Pantoprazole Sodium 40 mg DAILY IV 12/06/24 10:00 12/07/24 09:00 40 MG Diagnostic Test (Pha) 1 strip Q6HR 12/06/24 00:00 12/07/24 05:44 1 STRIP Insulin Human Regular Q6HR SC 12/06/24 00:00 12/07/24 05:50 2 UNITS Dextrose 50 ml UD PRN IV 12/05/24 23:15 Acetaminophen/ Hydrocodone Bitart 1 tab Q4HP PRN PO 12/05/24 23:15 12/07/24 12:33 1 TAB Ondansetron HCl 4 mg Q4HP PRN IV 12/05/24 23:15 12/07/24 13:25 4 MG Acetaminophen 650 mg Q6HP PRN PO 12/05/24 23:15 12/06/24 05:38 650 MG Baclofen 10 mg BID PO 12/06/24 22:00 12/07/24 09:02 10 MG Docusate Sodium 100 mg BID PO 12/07/24 22:00 Laboratory Results Laboratory Tests 12/07/24 07:24 Chemistry Test 12/07/24 07:24 Albumin 4.1 g/dL (3.2-4.8) Calcium Level 8.7 mg/dL (8.7-10.4) Total Protein 6.5 g/dL (5.7-8.2) LFT Test 12/07/24 07:24 Alanine Aminotransferase (ALT) 35 U/L (7-40) Alkaline Phosphatase 87 U/L (46-116) Aspartate Amino Transferase (AST) 31 U/L (13-40) Total Bilirubin 0.3 mg/dL (0.2-1.0) Urinalysis Test 12/05/24 20:16 Urine Color Colorless (Yellow) Urine Clarity Clear (Clear) Urine pH 6.0 (5.0-9.0) Urine Specific [place] 1.002 (1.001-1.035) Urine Protein Negative (Negative) Urine Ketones Negative (Negative) Urine Blood Negative /uL (Negative) Urine Nitrite Negative (Negative) Urine Bilirubin Negative (Negative) Urine Urobilinogen Normal mg/dL (Negative) Urine Leukocyte Esterase Negative /uL (Negative) Urine Glucose 3+ mg/dL (Normal) H Labs and/or images reviewed: Labs reviewed by me, Image(s) reviewed by me Assessment/Plan Assessment/Plan 44-year-old female w pmhx CVA, diabetes mellitus, hypertension presents for evaluation of abdominal pain. Patient presents with a three day history of right flank pain that radiates to her right side of the abdomen. She also reports episodes of nausea. No fever or chills. He also reports some diarrhea. No other acute complaints reported. 12/06: Patient continues to have pain, tender to palpation right flank. UA is unconcerning for UTI, CVA tenderness is unclear as it could also be musculoskeletal in that region in the right lower posterior ribs. Possible musculoskeletal versus diverticulitis although diverticulitis present have pain in flank and ribs. We will start baclofen 10 b.i.d., continue IV antibiotics for possible diverticulitis. Patient continues to have nausea. Pyelonephritis is unlikely but unable to rule out at this point as patient's pain and nausea could be evidence of pyelo but there is no evidence of UTI on urine. 12/07: We will continue musculoskeletal pain keeping baclofen 10 mg b.i.d.. Patient still continued to have pain of diverticulitis more so today we will continue IV antibiotics ceftriaxone/Flagyl, continue fluids feces in our LR, continue enroll clear liquid diet. We will reassess tomorrow to see patient's improved. If tomorrow only requiring p.o. meds to control pain may be possible discharge. dx: Acute diverticulitis Flank pain, musculoskeletal likely History CVA history diabetes type 2 HTN plan: ivf iv abx prn anaelgesia prn antiemetics baclofen 10 bid medsurg full code Plan discussed with: Patient My Orders Orders - SURINDER BURROWS MD Procedure Category Date Status Time Baclofen Tablet PHA 12/06/24 In Process (Liorisal Tablet) 22:00 Oxygen By Nasal RT 12/07/24 Transmitted Cannula 09:00 Docusate Sodium PHA 12/07/24 In Process Capsule (Colace 22:00 Date of Service: Dec 07, 2024 Billing Provider: SURINDER BURROWS MD Common Visit Codes: [id number] INP/OBS CARE(HIGH) SURINDER BURROWS MD Dec 07, 2024 16:19
[2024-12-07] MEDS: LACTATED RINGER'S 1,000 ML IV ONE (17:36)
[2024-12-07] MEDS: DOCUSATE SOD 100 MG CAP PO SCH (21:22)
[2024-12-08] VITALS (8 sets, daily range): BP systolic 128–150; BP diastolic 63–90; PULSE 84–122; RESP 16–20; TEMP 97.2–98; O2SAT 92–100
[2024-12-08 07:13] LABS: Anion Gap 9 (5-15); Carbon Dioxide 29 mmol/L (20-31); Chloride 105 mmol/L (98-107); Potassium 3.7 mmol/L (3.5-5.1); Sodium 143 mmol/L (136-145)
[2024-12-08 07:15] LABS: Calcium 8.7 mg/dL (8.7-10.4)
[2024-12-08 07:21] LABS: BUN/Creatinine Ratio 6.9 (10.0-20.0); Blood Urea Nitrogen < 5 mg/dL (9-23); Glucose 126 mg/dL (74-106)
--- NOTE | 2024-12-08 11:59 | DVHPN2 ---
Subjective Still having pain, seen at bedside today. Reviewed: H&P Changes from previous H/P or p: No Changes General: Per HPI Objective Vitals Vital Signs Date Time Temp Pulse Resp B/P (MAP) Pulse Ox O2 Delivery O2 Flow Rate FiO2 12/08/24 09:20 138/84 12/08/24 08:41 97.7 84 16 92 97.7 12/08/24 08:00 Room Air* 0 21 Intake/Output Intake and Output 12/08/24 07:00 Intake Total 1149 ml Output Total 850 ml Balance 299 ml Intake Oral 899 ml IV Total 250 ml Output Urine Total 850 ml # Voids 1 Exam Gen: 44-year-old female in mild distress. Skin: Warm, dry, normal color and texture, no rash. HEENT: Normocephalic atraumatic, mucous membranes moist and pink. Neck: Cervical and supraclavicular nodes normal without enlargement, trachea is midline, thyroid gland is normal without masses. Pulmonary: Clear to auscultation and percussion bilaterally. Cardiac: Regular rate and rhythm. No murmur Abdomen: Soft, nontender, nondistended, bowel sounds present all 4 quadrants, no guarding, no rigidity, no organomegaly. flank TTP right Extremities: No cyanosis, clubbing, no edema Neuro: Cranial nerves II through XII grossly intact, normal affect and speech, no focal motor deficits. General Appearance: Alert, Oriented X3, No acute distress Lungs: Clear to auscultation, Normal air movement, Other Cardiovascular: Regular rate, Normal S1, Normal S2, No murmurs, Gallops, Rubs, Other Abdomen: Normal bowel sounds, Soft, No tenderness, No hepatospenomegaly, No masses, Other (Mild epigastric tenderness) Medications Current Medications Medications Dose Ordered Sig/Rios Route Start Time Stop Time Status Last Admin Dose Admin Ceftriaxone Sodium 50 ml @ 100 mls/hr DAILY@09 IV 12/06/24 09:00 12/08/24 09:19 100 MLS/HR Metronidazole 100 ml @ 100 mls/hr Q8HR IV 12/06/24 06:00 12/08/24 06:53 100 MLS/HR Levothyroxine Sodium 150 mcg QAM@0600 PO 12/06/24 06:00 12/08/24 06:53 150 MCG Empaglifozin 10 mg DAILY PO 12/06/24 10:00 12/08/24 09:20 10 MG Amlodipine Besylate 10 mg DAILY PO 12/06/24 10:00 12/08/24 09:20 10 MG Losartan Potassium 50 mg DAILY PO 12/06/24 10:00 12/08/24 09:18 50 MG Furosemide 20 mg DAILY PO 12/06/24 10:00 12/08/24 09:19 20 MG Clonidine HCl 0.1 mg Q6HP PRN PO 12/05/24 23:15 Atorvastatin Calcium 40 mg HS PO 12/06/24 22:00 12/07/24 21:22 40 MG Pantoprazole Sodium 40 mg DAILY IV 12/06/24 10:00 12/08/24 09:16 40 MG Diagnostic Test (Pha) 1 strip Q6HR 12/06/24 00:00 12/08/24 11:32 1 STRIP Insulin Human Regular Q6HR SC 12/06/24 00:00 12/08/24 11:36 2 UNITS Dextrose 50 ml UD PRN IV 12/05/24 23:15 Acetaminophen/ Hydrocodone Bitart 1 tab Q4HP PRN PO 12/05/24 23:15 12/08/24 09:17 1 TAB Ondansetron HCl 4 mg Q4HP PRN IV 12/05/24 23:15 12/07/24 13:25 4 MG Acetaminophen 650 mg Q6HP PRN PO 12/05/24 23:15 12/06/24 05:38 650 MG Baclofen 10 mg BID PO 12/06/24 22:00 12/08/24 09:19 10 MG Docusate Sodium 100 mg BID PO 12/07/24 22:00 12/08/24 09:19 100 MG Laboratory Results Laboratory Tests 12/07/24 07:24 12/08/24 06:31 Chemistry Test 12/08/24 06:31 Calcium Level 8.7 mg/dL (8.7-10.4) Urinalysis Test 12/05/24 20:16 Urine Color Colorless (Yellow) Urine Clarity Clear (Clear) Urine pH 6.0 (5.0-9.0) Urine Specific [place] 1.002 (1.001-1.035) Urine Protein Negative (Negative) Urine Ketones Negative (Negative) Urine Blood Negative /uL (Negative) Urine Nitrite Negative (Negative) Urine Bilirubin Negative (Negative) Urine Urobilinogen Normal mg/dL (Negative) Urine Leukocyte Esterase Negative /uL (Negative) Urine Glucose 3+ mg/dL (Normal) H Labs and/or images reviewed: Labs reviewed by me, Image(s) reviewed by me Assessment/Plan Assessment/Plan 44-year-old female w pmhx CVA, diabetes mellitus, hypertension presents for evaluation of abdominal pain. Patient presents with a three day history of right flank pain that radiates to her right side of the abdomen. She also reports episodes of nausea. No fever or chills. He also reports some diarrhea. No other acute complaints reported. 12/06: Patient continues to have pain, tender to palpation right flank. UA is unconcerning for UTI, CVA tenderness is unclear as it could also be musculoskeletal in that region in the right lower posterior ribs. Possible musculoskeletal versus diverticulitis although diverticulitis present have pain in flank and ribs. We will start baclofen 10 b.i.d., continue IV antibiotics for possible diverticulitis. Patient continues to have nausea. Pyelonephritis is unlikely but unable to rule out at this point as patient's pain and nausea could be evidence of pyelo but there is no evidence of UTI on urine. 12/07: We will continue musculoskeletal pain keeping baclofen 10 mg b.i.d.. Patient still continued to have pain of diverticulitis more so today we will continue IV antibiotics ceftriaxone/Flagyl, continue fluids feces in our LR, continue enroll clear liquid diet. We will reassess tomorrow to see patient's improved. If tomorrow only requiring p.o. meds to control pain may be possible discharge. 12/08: Patient continues to have pain we will ensure patient is sitting PPI IV b.i.d., and Carafate 100 mg twice daily. Continue antibiotics. Continue treatment for diverticulitis. We will monitor for pain tomorrow. dx: Acute diverticulitis Flank pain, musculoskeletal likely History CVA history diabetes type 2 HTN plan: ivf iv abx prn anaelgesia prn antiemetics baclofen 10 bid medsurg full code Plan discussed with: Patient My Orders Orders - SURINDER BURROWS MD Procedure Category Date Status Time Docusate Sodium PHA 12/07/24 In Process Capsule (Colace 22:00 Date of Service: Dec 08, 2024 Billing Provider: SURINDER BURROWS MD Common Visit Codes: [id number] INP/OBS CARE(HIGH) SURINDER BURROWS MD Dec 08, 2024 11:59
--- NOTE | 2024-12-08 15:18 | DVHPN2 ---
Subjective Patient continues to complain of epigastric pain Patient has history of GERD No bowel movement for last four days Reviewed: H&P Changes from previous H/P or p: No Changes General: Per HPI Objective Vitals Vital Signs Date Time Temp Pulse Resp B/P (MAP) Pulse Ox O2 Delivery O2 Flow Rate FiO2 12/08/24 13:00 97.8 95 18 130/90 (103) 97 97.8 12/08/24 08:00 Room Air* 0 21 Intake/Output Intake and Output 12/08/24 07:00 Intake Total 1149 ml Output Total 850 ml Balance 299 ml Intake Oral 899 ml IV Total 250 ml Output Urine Total 850 ml # Voids 1 General Appearance: Alert, Oriented X3, No acute distress Lungs: Clear to auscultation Cardiovascular: Regular rate, Normal S1, Normal S2, No murmurs, Gallops, Rubs, Other Abdomen: Normal bowel sounds, Soft, No tenderness, No hepatospenomegaly, No masses, Other (Mild epigastric tenderness) Medications Current Medications Medications Dose Ordered Sig/Rios Route Start Time Stop Time Status Last Admin Dose Admin Ceftriaxone Sodium 50 ml @ 100 mls/hr DAILY@09 IV 12/06/24 09:00 12/08/24 09:19 100 MLS/HR Metronidazole 100 ml @ 100 mls/hr Q8HR IV 12/06/24 06:00 12/08/24 13:58 100 MLS/HR Levothyroxine Sodium 150 mcg QAM@0600 PO 12/06/24 06:00 12/08/24 06:53 150 MCG Empaglifozin 10 mg DAILY PO 12/06/24 10:00 12/08/24 09:20 10 MG Amlodipine Besylate 10 mg DAILY PO 12/06/24 10:00 12/08/24 09:20 10 MG Losartan Potassium 50 mg DAILY PO 12/06/24 10:00 12/08/24 09:18 50 MG Furosemide 20 mg DAILY PO 12/06/24 10:00 12/08/24 09:19 20 MG Clonidine HCl 0.1 mg Q6HP PRN PO 12/05/24 23:15 Atorvastatin Calcium 40 mg HS PO 12/06/24 22:00 12/07/24 21:22 40 MG Pantoprazole Sodium 40 mg DAILY IV 12/06/24 10:00 12/08/24 09:16 40 MG Diagnostic Test (Pha) 1 strip Q6HR 12/06/24 00:00 12/08/24 11:32 1 STRIP Insulin Human Regular Q6HR SC 12/06/24 00:00 12/08/24 11:36 2 UNITS Dextrose 50 ml UD PRN IV 12/05/24 23:15 Acetaminophen/ Hydrocodone Bitart 1 tab Q4HP PRN PO 12/05/24 23:15 12/08/24 14:01 1 TAB Ondansetron HCl 4 mg Q4HP PRN IV 12/05/24 23:15 12/08/24 14:09 4 MG Acetaminophen 650 mg Q6HP PRN PO 12/05/24 23:15 12/06/24 05:38 650 MG Baclofen 10 mg BID PO 12/06/24 22:00 12/08/24 09:19 10 MG Docusate Sodium 100 mg BID PO 12/07/24 22:00 12/08/24 09:19 100 MG Laboratory Results Laboratory Tests 12/07/24 07:24 12/08/24 06:31 Chemistry Test 12/08/24 06:31 Calcium Level 8.7 mg/dL (8.7-10.4) Urinalysis Test 12/05/24 20:16 Urine Color Colorless (Yellow) Urine Clarity Clear (Clear) Urine pH 6.0 (5.0-9.0) Urine Specific [place] 1.002 (1.001-1.035) Urine Protein Negative (Negative) Urine Ketones Negative (Negative) Urine Blood Negative /uL (Negative) Urine Nitrite Negative (Negative) Urine Bilirubin Negative (Negative) Urine Urobilinogen Normal mg/dL (Negative) Urine Leukocyte Esterase Negative /uL (Negative) Urine Glucose 3+ mg/dL (Normal) H Labs and/or images reviewed: Labs reviewed by me, Image(s) reviewed by me Assessment/Plan Assessment/Plan Diverticulitis Abdominal pain Constipation History of GERD Plan: Discussed with Dr. Chavez Protonix and Carafate Continue clear liquid diet MiraLax Full liquid diet Plan discussed with: Patient My Orders Orders - LADAN NAPIER Procedure Category Date Status Time Full Liq Diet DIET 12/08/24 Verified Dinner Polyethylene Glycol PHA 12/08/24 Verified 17g Powder (Miralax 15:30 Date of Service: Dec 08, 2024 Billing Provider: LADAN NAPIER Common Visit Codes: [id number] INP/OBS CARE(HIGH), CONSULT ONLY LADAN NAPIER Dec 08, 2024 15:18
[2024-12-08] MEDS: POLYETHYLENE GLYCOL 17 GM PWDR PO ONE (17:43)
[2024-12-08] MEDS: TEMAZEPAM 15 MG CAP PO ONE (22:24)
[2024-12-08] MEDS: SODIUM CHLORIDE 0.9% 500 ML IV ONE (22:24)
[2024-12-09] VITALS (8 sets, daily range): BP systolic 117–163; BP diastolic 64–90; PULSE 77–107; RESP 16–20; TEMP 98.2–98.6; O2SAT 93–100
[2024-12-09] MEDS ORDERED: LEVO150T10 PO (09:02)
[2024-12-09] MEDS ORDERED: LOSA-534 PO (09:02)
[2024-12-09] MEDS ORDERED: FENO54TA4 PO (09:02)
[2024-12-09] MEDS ORDERED: HAL5T PO (09:02)
[2024-12-09] MEDS ORDERED: METF-370 PO (09:02)
[2024-12-09] MEDS ORDERED: CLON0.1T PO (09:02)
[2024-12-09] MEDS ORDERED: AMLO1TAB23 PO (09:02)
[2024-12-09] MEDS ORDERED: SENN-105 PO (09:02)
[2024-12-09] MEDS ORDERED: EMPA1TAB PO (09:02)
[2024-12-09] MEDS ORDERED: CITA-77 PO (09:02)
[2024-12-09] MEDS ORDERED: DESM0.2T17 PO (09:02)
[2024-12-09] MEDS ORDERED: FURO20TA4 PO (09:02)
[2024-12-09] MEDS ORDERED: BENZ1TAB6 PO (09:03)
[2024-12-09] MEDS ORDERED: ASPI-325 PO (09:03)
[2024-12-09] MEDS ORDERED: QUET400T13 PO (09:03)
--- NOTE | 2024-12-09 10:30 | DVH ---
Indication: ABDOMINAL PAIN Technique: CT axial images of the abdomen and pelvis are obtained without contrast. Coronal and sagit radha reformats were obtained. Radiation Dose Information: CTDI volume is 23.81 mGy. Dose-length product is 1287 mGy*cm Comparison: CT CT AB PEL WO CON-NO ORAL OR IV on DOS: 12/05/24, CT ABD/PEL on DOS: 07/01/24 FINDINGS: There is limited interpretation of the abdomen and pelvis without administration of intravenous contr ast. The lung bases demonstrate no pleural effusion. Adrenal glands, spleen, pancreas unremarkable in shape. Cholecystectomy. Liver unremarkable in shap e. No hydronephrosis/ nephrolithiasis. Stomach partially distended. Small bowel loops are normal in caliber. Colonic diverticular disease. Moderate volume stool within the colon. Normal appendix. Abdominal aortic atherosclerotic disease. Bladder partially distended. No free pelvic fluid. No ingui nal lymphadenopathy. [id number] bilateral sacroiliac degenerative joint disease. Left iliac bone sclerotic lesion m easuring 1.9 cm. 7 mm right sacral sclerotic lesion Moderate to advanced lumbar degenerative disc dis ease most pronounced at L4-5. Moderate lumbar facet hypertrophic changes. IMPRESSION: Limited evaluation without contrast. Colonic diverticular disease. No hydronephrosis /nephrolithiasis. Left iliac sclerotic lesion measuring 1.9 cm. 7 mm right sacral sclerotic lesion. Differential consid erations include bone island, bone infarct, osteoblastic metastases. Correlate with clinical history and risk factors. Moderate to advanced lumbar degenerative disc disease. Other findings as described.
[2024-12-09] MEDS: PANTOPRAZOLE 40 MG/10 ML VIAL INJ IV SCH (12:51)
--- NOTE | 2024-12-09 15:14 | DVHPN2 ---
Subjective Patient admits to feeling better Patient has history of GERD No bowel movement for last five days Reviewed: H&P Changes from previous H/P or p: No Changes General: Per HPI Objective Vitals Vital Signs Date Time Temp Pulse Resp B/P (MAP) Pulse Ox O2 Delivery O2 Flow Rate FiO2 12/09/24 14:27 131/70 12/09/24 12:58 98.4 86 17 100 98.4 12/09/24 08:00 Nasal Cannula* 3 32 Intake/Output Intake and Output 12/09/24 07:00 Intake Total 1550 ml Balance 1550 ml Intake Oral 600 ml IV Total 950 ml # Voids 7 Exam General: NAD, AAOX3 Chest: lung cadena clear to auscultation Heart: RRR, no murmur Abdomen: non-distended, mild left sided tenderness to palpation, +BS General Appearance: Alert, Oriented X3, No acute distress Lungs: Clear to auscultation Cardiovascular: Regular rate, Normal S1, Normal S2, No murmurs, Gallops, Rubs, Other Abdomen: Normal bowel sounds, Soft, No tenderness, No hepatospenomegaly, No masses, Other (Mild epigastric tenderness) Medications Current Medications Medications Dose Ordered Sig/Rios Route Start Time Stop Time Status Last Admin Dose Admin Ceftriaxone Sodium 50 ml @ 100 mls/hr DAILY@09 IV 12/06/24 09:00 12/09/24 11:14 100 MLS/HR Metronidazole 100 ml @ 100 mls/hr Q8HR IV 12/06/24 06:00 12/09/24 14:21 100 MLS/HR Levothyroxine Sodium 150 mcg QAM@0600 PO 12/06/24 06:00 12/09/24 05:58 150 MCG Empaglifozin 10 mg DAILY PO 12/06/24 10:00 12/09/24 11:18 10 MG Amlodipine Besylate 10 mg DAILY PO 12/06/24 10:00 12/09/24 11:18 10 MG Losartan Potassium 50 mg DAILY PO 12/06/24 10:00 12/09/24 14:27 50 MG Furosemide 20 mg DAILY PO 12/06/24 10:00 12/09/24 11:17 20 MG Clonidine HCl 0.1 mg Q6HP PRN PO 12/05/24 23:15 Atorvastatin Calcium 40 mg HS PO 12/06/24 22:00 12/08/24 21:01 40 MG Diagnostic Test (Pha) 1 strip Q6HR 12/06/24 00:00 12/09/24 12:51 1 STRIP Insulin Human Regular Q6HR SC 12/06/24 00:00 12/09/24 12:58 3 UNITS Dextrose 50 ml UD PRN IV 12/05/24 23:15 Acetaminophen/ Hydrocodone Bitart 1 tab Q4HP PRN PO 12/05/24 23:15 12/08/24 14:01 1 TAB Ondansetron HCl 4 mg Q4HP PRN IV 12/05/24 23:15 12/08/24 19:53 4 MG Acetaminophen 650 mg Q6HP PRN PO 12/05/24 23:15 12/06/24 05:38 650 MG Baclofen 10 mg BID PO 12/06/24 22:00 12/09/24 11:15 10 MG Docusate Sodium 100 mg BID PO 12/07/24 22:00 12/09/24 11:15 100 MG Pantoprazole Sodium 40 mg BID IV 12/09/24 10:00 12/09/24 12:51 40 MG Laboratory Results Laboratory Tests 12/07/24 07:24 12/08/24 06:31 Urinalysis Test 12/05/24 20:16 Urine Color Colorless (Yellow) Urine Clarity Clear (Clear) Urine pH 6.0 (5.0-9.0) Urine Specific [place] 1.002 (1.001-1.035) Urine Protein Negative (Negative) Urine Ketones Negative (Negative) Urine Blood Negative /uL (Negative) Urine Nitrite Negative (Negative) Urine Bilirubin Negative (Negative) Urine Urobilinogen Normal mg/dL (Negative) Urine Leukocyte Esterase Negative /uL (Negative) Urine Glucose 3+ mg/dL (Normal) H CT abdomen pelvis IMPRESSION: Limited evaluation without contrast. Colonic diverticular disease. No hydronephrosis /nephrolithiasis. Left iliac sclerotic lesion measuring 1.9 cm. 7 mm right sacral sclerotic lesion. Differential considerations include bone island, bone infarct, osteoblastic metastases. Correlate with clinical history and risk factors. Moderate to advanced lumbar degenerative disc disease. Other findings as described. Assessment/Plan Assessment/Plan Diverticulitis Abdominal pain Constipation History of GERD Plan: Discussed with Dr. Chavez Protonix and Carafate Continue clear liquid diet MiraLax Full liquid diet We will continue to monitor patient Plan discussed with: Patient, Other (Dr. Brice) My Orders Orders - LADAN NAPIER Procedure Category Date Status Time Full Liq Diet DIET 12/08/24 Transmitted Dinner Date of Service: Dec 09, 2024 Billing Provider: LADAN NAPIER Common Visit Codes: [id number] INP/OBS CARE(HIGH) LADAN NAPIER Dec 09, 2024 15:14
--- NOTE | 2024-12-09 17:46 | DVHPN2 ---
Subjective Still having pain, seen at bedside today. Reviewed: H&P Changes from previous H/P or p: No Changes General: Per HPI Objective Vitals Vital Signs Date Time Temp Pulse Resp B/P (MAP) Pulse Ox O2 Delivery O2 Flow Rate FiO2 12/09/24 17:04 98.4 94 18 140/76 (97) 93 98.4 12/09/24 08:00 Nasal Cannula* 3 32 Intake/Output Intake and Output 12/09/24 07:00 Intake Total 1550 ml Balance 1550 ml Intake Oral 600 ml IV Total 950 ml # Voids 7 Exam Gen: 44-year-old female in mild distress. Skin: Warm, dry, normal color and texture, no rash. HEENT: Normocephalic atraumatic, mucous membranes moist and pink. Neck: Cervical and supraclavicular nodes normal without enlargement, trachea is midline, thyroid gland is normal without masses. Pulmonary: Clear to auscultation and percussion bilaterally. Cardiac: Regular rate and rhythm. No murmur Abdomen: Soft, nontender, nondistended, bowel sounds present all 4 quadrants, no guarding, no rigidity, no organomegaly. flank TTP right Extremities: No cyanosis, clubbing, no edema Neuro: Cranial nerves II through XII grossly intact, normal affect and speech, no focal motor deficits. General Appearance: Alert, Oriented X3, No acute distress Lungs: Clear to auscultation Cardiovascular: Regular rate, Normal S1, Normal S2, No murmurs, Gallops, Rubs, Other Abdomen: Normal bowel sounds, Soft, No tenderness, No hepatospenomegaly, No masses, Other (Mild epigastric tenderness) Medications Current Medications Medications Dose Ordered Sig/Rios Route Start Time Stop Time Status Last Admin Dose Admin Ceftriaxone Sodium 50 ml @ 100 mls/hr DAILY@09 IV 12/06/24 09:00 12/09/24 11:14 100 MLS/HR Metronidazole 100 ml @ 100 mls/hr Q8HR IV 12/06/24 06:00 12/09/24 14:21 100 MLS/HR Levothyroxine Sodium 150 mcg QAM@0600 PO 12/06/24 06:00 12/09/24 05:58 150 MCG Empaglifozin 10 mg DAILY PO 12/06/24 10:00 12/09/24 11:18 10 MG Amlodipine Besylate 10 mg DAILY PO 12/06/24 10:00 12/09/24 11:18 10 MG Losartan Potassium 50 mg DAILY PO 12/06/24 10:00 12/09/24 14:27 50 MG Furosemide 20 mg DAILY PO 12/06/24 10:00 12/09/24 11:17 20 MG Clonidine HCl 0.1 mg Q6HP PRN PO 12/05/24 23:15 Atorvastatin Calcium 40 mg HS PO 12/06/24 22:00 12/08/24 21:01 40 MG Diagnostic Test (Pha) 1 strip Q6HR 12/06/24 00:00 12/09/24 12:51 1 STRIP Insulin Human Regular Q6HR SC 12/06/24 00:00 12/09/24 12:58 3 UNITS Dextrose 50 ml UD PRN IV 12/05/24 23:15 Acetaminophen/ Hydrocodone Bitart 1 tab Q4HP PRN PO 12/05/24 23:15 12/08/24 14:01 1 TAB Ondansetron HCl 4 mg Q4HP PRN IV 12/05/24 23:15 12/08/24 19:53 4 MG Acetaminophen 650 mg Q6HP PRN PO 12/05/24 23:15 12/06/24 05:38 650 MG Baclofen 10 mg BID PO 12/06/24 22:00 12/09/24 11:15 10 MG Docusate Sodium 100 mg BID PO 12/07/24 22:00 12/09/24 11:15 100 MG Pantoprazole Sodium 40 mg BID IV 12/09/24 10:00 12/09/24 12:51 40 MG Laboratory Results Laboratory Tests 12/07/24 07:24 12/08/24 06:31 Urinalysis Test 12/05/24 20:16 Urine Color Colorless (Yellow) Urine Clarity Clear (Clear) Urine pH 6.0 (5.0-9.0) Urine Specific [place] 1.002 (1.001-1.035) Urine Protein Negative (Negative) Urine Ketones Negative (Negative) Urine Blood Negative /uL (Negative) Urine Nitrite Negative (Negative) Urine Bilirubin Negative (Negative) Urine Urobilinogen Normal mg/dL (Negative) Urine Leukocyte Esterase Negative /uL (Negative) Urine Glucose 3+ mg/dL (Normal) H Labs and/or images reviewed: Labs reviewed by me, Image(s) reviewed by me Assessment/Plan Assessment/Plan 44-year-old female w pmhx CVA, diabetes mellitus, hypertension presents for evaluation of abdominal pain. Patient presents with a three day history of right flank pain that radiates to her right side of the abdomen. She also reports episodes of nausea. No fever or chills. He also reports some diarrhea. No other acute complaints reported. 12/06: Patient continues to have pain, tender to palpation right flank. UA is unconcerning for UTI, CVA tenderness is unclear as it could also be musculoskeletal in that region in the right lower posterior ribs. Possible musculoskeletal versus diverticulitis although diverticulitis present have pain in flank and ribs. We will start baclofen 10 b.i.d., continue IV antibiotics for possible diverticulitis. Patient continues to have nausea. Pyelonephritis is unlikely but unable to rule out at this point as patient's pain and nausea could be evidence of pyelo but there is no evidence of UTI on urine. 12/07: We will continue musculoskeletal pain keeping baclofen 10 mg b.i.d.. Patient still continued to have pain of diverticulitis more so today we will continue IV antibiotics ceftriaxone/Flagyl, continue fluids feces in our LR, continue enroll clear liquid diet. We will reassess tomorrow to see patient's improved. If tomorrow only requiring p.o. meds to control pain may be possible discharge. 12/08: Patient continues to have pain we will ensure patient is sitting PPI IV b.i.d., and Carafate 100 mg twice daily. Continue antibiotics. Continue treatment for diverticulitis. We will monitor for pain tomorrow. 12/09: Patient continues to have abdominal pain epigastric pain. Tender to palpation. Had emesis overnight 500 cc, fluids were replaced. CT abdomen repeat today with no other further concerns or any acute abdomen signs. We will continue to monitor today we will increase PPI to IV b.i.d. and start Carafate. We will continue to monitor, keep on clear liquids. Continue IV antibiotics. dx: Acute diverticulitis Flank pain, musculoskeletal likely History CVA history diabetes type 2 HTN plan: ivf iv abx prn anaelgesia prn antiemetics baclofen 10 bid medsurg full code Plan discussed with: Patient My Orders Orders - SURINDER BURROWS MD Procedure Category Date Status Time Pantoprazole PHA 12/09/24 In Process (Protonix) 10:00 Ct Ab Pel Wo Con-No CT 12/09/24 Resulted Oral Or Iv 08:59 Date of Service: Dec 09, 2024 Billing Provider: SURINDER BURROWS MD Common Visit Codes: [id number] INP/OBS CARE(HIGH) SURINDER BURROWS MD Dec 09, 2024 17:46
[2024-12-09] MEDS: SUCRALFATE 1 GM/10 ML ORAL SUSP PO SCH (21:49)
[2024-12-10 01:00] VITALS: BP 122/74; PULSE 79; RESP 20; TEMP 98.4; O2SAT 94
[2024-12-10 05:00] VITALS: BP 133/73; PULSE 83; RESP 18; TEMP 98; O2SAT 97
[2024-12-10 08:00] VITALS: RESP 20
[2024-12-10 08:34] VITALS: BP 103/63; PULSE 90; RESP 20; TEMP 98.4; O2SAT 90
[2024-12-10] MEDS ORDERED: SUCR1TAB31 PO (12:07)
[2024-12-10] MEDS ORDERED: AUG875T PO (12:07)
[2024-12-10] MEDS ORDERED: PANT40TA2 PO (12:07)
--- NOTE | 2024-12-10 12:08 | DVHDS2 ---
Discharge Summary Date of Admission Dec 05, 2024 at 23:01 Date of Discharge: Dec 10, 2024 Labs/Diagnostic Data: Laboratory Results Test 12/10/24 05:03 12/08/24 06:31 12/07/24 07:24 12/05/24 23:22 POC Glucose 120 mg/dl (70-106) Sodium Level 143 mmol/L (136-145) Potassium Level 3.7 mmol/L (3.5-5.1) Chloride Level 105 mmol/L (98-107) Carbon Dioxide Level 29 mmol/L (20-31) Anion Gap 9 (5-15) Blood Urea Nitrogen < 5 mg/dL (9-23) Creatinine 0.72 mg/dL (0.550-1.02) Glomerular Filtration Rate Calc 106 mL/min (>90) BUN/Creatinine Ratio 6.9 (10.0-20.0) Serum Glucose 126 mg/dL (74-106) Calcium Level 8.7 mg/dL (8.7-10.4) White Blood Count 5.1 10^3/uL (4.4-10.8) Red Blood Count 4.54 10^6/uL (4.0-5.20) Hemoglobin 13.5 g/dL (12.2-16.2) Hematocrit 39.8 % (36.0-46.0) Mean Corpuscular Volume 87.7 fL (80.0-100.0) Mean Corpuscular Hemoglobin 29.7 pg (28.0-32.0) Mean Corpuscular Hemoglobin Concent 33.9 g/dL (32.0-36.0) Red Cell Distribution Width 14.8 % (11.8-14.3) Platelet Count 185 10^3/uL (140-450) Mean Platelet Volume 10.1 fL (6.9-10.8) Neutrophils (%) (Auto) 66.9 % (37.0-80.0) Lymphocytes (%) (Auto) 24.1 % (10.0-50.0) Monocytes (%) (Auto) 7.1 % (0.0-12.0) Eosinophils (%) (Auto) 1.7 % (0.0-7.0) Basophils (%) (Auto) 0.2 % (0.0-2.0) Neutrophils # (Auto) 3.4 10 ^3/uL (1.6-8.6) Lymphocytes # (Auto) 1.2 10 ^3/uL (0.4-5.4) Monocytes # (Auto) 0.4 10 ^3/uL (0-1.3) Eosinophils # (Auto) 0.1 10 ^3/uL (0-0.8) Basophils # (Auto) 0 10 ^3/uL (0-0.2) Nucleated Red Blood Cells 0.1 % Total Bilirubin 0.3 mg/dL (0.2-1.0) Aspartate Amino Transferase (AST) 31 U/L (13-40) Alanine Aminotransferase (ALT) 35 U/L (7-40) Alkaline Phosphatase 87 U/L (46-116) Total Protein 6.5 g/dL (5.7-8.2) Albumin 4.1 g/dL (3.2-4.8) Lactic Acid Level 1.5 mmol/L (0.4-2.0) Test 12/05/24 20:16 12/05/24 19:40 Urine Color Colorless (Yellow) Urine Clarity Clear (Clear) Urine pH 6.0 (5.0-9.0) Urine Specific [place] 1.002 (1.001-1.035) Urine Protein Negative (Negative) Urine Ketones Negative (Negative) Urine Blood Negative /uL (Negative) Urine Nitrite Negative (Negative) Urine Bilirubin Negative (Negative) Urine Urobilinogen Normal mg/dL (Negative) Urine Leukocyte Esterase Negative /uL (Negative) Urine Glucose 3+ mg/dL (Normal) Hemoglobin A1c 6.6 % A1C (<5.7) Phosphorus Level 4.0 mg/dL (2.4-5.1) Magnesium Level 1.9 mg/dL (1.6-2.6) Direct Bilirubin < 0.1 mg/dL (<0.3) Lipase 36 U/L (12-53) Vitamin B12 Level 312 pg/mL (211-911) Vitamin D 25-Hydroxy 40.4 ng/mL (30.0-100) Thyroid Stimulating Hormone (TSH) 0.50 uIU/mL (0.55-4.78) Other Laboratory Tests 12/08/24 06:31 12/07/24 07:24 Brief Hx & Hospital Course: 44-year-old female w pmhx CVA, diabetes mellitus, hypertension presents for evaluation of abdominal pain. Patient presents with a three day history of right flank pain that radiates to her right side of the abdomen. She also reports episodes of nausea. No fever or chills. He also reports some diarrhea. No other acute complaints reported. 12/06: Patient continues to have pain, tender to palpation right flank. UA is unconcerning for UTI, CVA tenderness is unclear as it could also be musculoskeletal in that region in the right lower posterior ribs. Possible musculoskeletal versus diverticulitis although diverticulitis present have pain in flank and ribs. We will start baclofen 10 b.i.d., continue IV antibiotics for possible diverticulitis. Patient continues to have nausea. Pyelonephritis is unlikely but unable to rule out at this point as patient's pain and nausea could be evidence of pyelo but there is no evidence of UTI on urine. 12/07: We will continue musculoskeletal pain keeping baclofen 10 mg b.i.d.. Patient still continued to have pain of diverticulitis more so today we will continue IV antibiotics ceftriaxone/Flagyl, continue fluids feces in our LR, continue enroll clear liquid diet. We will reassess tomorrow to see patient's improved. If tomorrow only requiring p.o. meds to control pain may be possible discharge. 12/08: Patient continues to have pain we will ensure patient is sitting PPI IV b.i.d., and Carafate 100 mg twice daily. Continue antibiotics. Continue treatment for diverticulitis. We will monitor for pain tomorrow. 12/09: Patient continues to have abdominal pain epigastric pain. Tender to palpation. Had emesis overnight 500 cc, fluids were replaced. CT abdomen repeat today with no other further concerns or any acute abdomen signs. We will continue to monitor today we will increase PPI to IV b.i.d. and start Carafate. We will continue to monitor, keep on clear liquids. Continue IV antibiotics. dx: Acute diverticulitis, with intractable nausea emesis and po intolerance acute gastritis possible Flank pain, musculoskeletal possible History CVA history diabetes type 2 HTN plan: - augmentin 875mg twice daily for 5 days - Take plain whole [place] yogurt, tbsp full, twice daily for 14 days - take Protonix 40 mg daily for 30 days -Take Carafate 100 mg daily for 30 days -Take full liquid diet for 1 week, can advance to diabetic diet thereafter - follow up with PCP to review discharge Condition at Discharge: Fair Final Diagnosis/Problems List Acute diverticulitis, with intractable nausea emesis and po intolerance acute gastritis possible Flank pain, musculoskeletal possible History CVA history diabetes type 2 HTN Discharge Disposition: Home Discharge Instruct/Medications Scheduled Amlodipine Besylate (Amlodipine Besylate), 1 TAB PO DAILY, (Reported) Aspirin (Aspirin Low Dose), 1 TAB PO DAILY, (Reported) Benztropine Mesylate (Benztropine Mesylate), 1 TAB PO BID, (Reported) Citalopram Hydrobromide (Citalopram Hydrobromide), 1 TAB PO DAILY, (Reported) Clonidine Hydrochloride (Clonidine Hcl), 1 TAB PO BID, (Reported) Desmopressin Acetate (Desmopressin Acetate), 1 TAB PO DAILY, (Reported) Empagliflozin (Jardiance), 1 TAB PO DAILY, (Reported) Fenofibrate (Fenofibrate), 1 TAB PO DAILY, (Reported) Furosemide (Furosemide), 1 TAB PO DAILY, (Reported) Levothyroxine Sodium (Levothyroxine Sodium), 1 TAB PO DAILY, (Reported) Losartan Potassium (Losartan Potassium), 1 TAB PO BID, (Reported) Metformin Hydrochloride (Metformin Hcl), 1 TAB PO DAILY, (Reported) Senna (Senna), 1 PO DAILY, (Reported) Miscellaneous Medications Haloperidol (Haldol), 1 TAB PO, (Reported) Quetiapine Fumerate (Quetiapine Fumarate), 1 TAB PO, (Reported) Discharge Statement: "Patient was advised to return to the ER or call 911 if any headaches, dizziness, shortness of breath, chest pain, abdominal pain, bleeding, fevers, or worsening of medical condition. Patient was counseled about treatment plan, medications, possible side effects, patientverbalized understanding. All questions were answered to the best of my ability. This discharge took greater then 30 minutes in planning, reviewing documentation, counseling the patient, and discussing with other team members." ASSESSMENT ASSESSMENT Assessment Date of Service: Dec 10, 2024 Billing Provider: SURINDER BURROWS MD Common Visit Codes: [id number] DISCH DAY >30min SURINDER BURROWS MD Dec 10, 2024 12:07
[2024-12-10 12:25] VITALS: BP 110/71; PULSE 84; RESP 20; TEMP 99.1; O2SAT 95
[2024-12-10 13:05] LABS: Alanine Aminotransferase 27 U/L (7-40); Albumin 4.6 g/dL (3.2-4.8); Alkaline Phosphatase 89 U/L (46-116); Anion Gap 11 (5-15); BUN/Creatinine Ratio 12.1 (10.0-20.0); Calcium 9.3 mg/dL (8.7-10.4); Carbon Dioxide 25 mmol/L (20-31); Chloride 104 mmol/L (98-107); Potassium 3.6 mmol/L (3.5-5.1); Sodium 140 mmol/L (136-145); Total Protein 7.1 g/dL (5.7-8.2)
[2024-12-10 13:06] LABS: Bilirubin, Total 0.4 mg/dL (0.2-1.0)
[2024-12-10 13:07] LABS: Blood Urea Nitrogen 8 mg/dL (9-23); Glucose 133 mg/dL (74-106)
--- NOTE | 2024-12-10 13:07 | DVHPN2 ---
Progress Note - Dictate Date Seen: Dec 10, 2024 Medical Necessity Reason Pt with a Central, PICC or Fol: No Subjective No new complaints, patient feels better One bowel movement recorded last night, no bleeding vital signs Vital Sign Date Time Temp Pulse Resp B/P (MAP) Pulse Ox O2 Delivery O2 Flow Rate FiO2 12/10/24 12:25 99.1 84 20 110/71 (84) 95 99.1 12/10/24 08:00 Nasal Cannula* 3 32 Total Intake and Output 12/09/24 12/09/24 12/10/24 15:00 23:00 07:00 Intake Total 950 ml 575 ml Balance 950 ml 575 ml medications Current Medications Medications Dose Ordered Sig/Rios Route Start Time Stop Time Status Last Admin Dose Admin Ceftriaxone Sodium 50 ml @ 100 mls/hr DAILY@09 IV 12/06/24 09:00 12/10/24 09:17 100 MLS/HR Metronidazole 100 ml @ 100 mls/hr Q8HR IV 12/06/24 06:00 12/10/24 05:34 100 MLS/HR Levothyroxine Sodium 150 mcg QAM@0600 PO 12/06/24 06:00 12/10/24 05:34 150 MCG Empaglifozin 10 mg DAILY PO 12/06/24 10:00 12/10/24 09:18 10 MG Amlodipine Besylate 10 mg DAILY PO 12/06/24 10:00 12/09/24 11:18 10 MG Losartan Potassium 50 mg DAILY PO 12/06/24 10:00 12/09/24 14:27 50 MG Furosemide 20 mg DAILY PO 12/06/24 10:00 12/10/24 09:21 20 MG Clonidine HCl 0.1 mg Q6HP PRN PO 12/05/24 23:15 Atorvastatin Calcium 40 mg HS PO 12/06/24 22:00 12/09/24 21:50 40 MG Diagnostic Test (Pha) 1 strip Q6HR 12/06/24 00:00 12/10/24 12:53 1 STRIP Insulin Human Regular Q6HR SC 12/06/24 00:00 12/10/24 12:55 2 UNITS Dextrose 50 ml UD PRN IV 12/05/24 23:15 Acetaminophen/ Hydrocodone Bitart 1 tab Q4HP PRN PO 12/05/24 23:15 12/08/24 14:01 1 TAB Ondansetron HCl 4 mg Q4HP PRN IV 12/05/24 23:15 12/08/24 19:53 4 MG Acetaminophen 650 mg Q6HP PRN PO 12/05/24 23:15 12/06/24 05:38 650 MG Baclofen 10 mg BID PO 12/06/24 22:00 12/10/24 09:19 10 MG Docusate Sodium 100 mg BID PO 12/07/24 22:00 12/10/24 09:18 100 MG Pantoprazole Sodium 40 mg BID IV 12/09/24 10:00 12/10/24 09:17 40 MG Sucralfate 1 gm BID@0600,2200 PO 12/09/24 22:00 12/10/24 05:34 1 GM objective General Appearance: Alert, Oriented X3, No acute distress Lungs: Clear to auscultation Cardiovascular: Regular rate, Normal S1, Normal S2, No murmurs, Gallops, Rubs, Other Abdomen: Normal bowel sounds, Soft, No tenderness, No hepatospenomegaly, No masses, Other (Mild epigastric tenderness) laboratory and microbiology Laboratory Tests 12/07/24 07:24 Test 12/10/24 12:35 Range/Units Serum Glucose Pending CT SCAN ABD PELVIS IMPRESSION: Limited evaluation without contrast. Colonic diverticular disease. No hydronephrosis /nephrolithiasis. Left iliac sclerotic lesion measuring 1.9 cm. 7 mm right sacral sclerotic lesion. Differential considerations include bone island, bone infarct, osteoblastic metastases. Correlate with clinical history and risk factors. Moderate to advanced lumbar degenerative disc disease. Other findings as described. Problems(with codes): (1) Abdominal pain (2) Abnormal finding on GI tract imaging (3) Disc disease, degenerative, lumbar or lumbosacral (4) Diverticulosis Prognosis Plan Discharge planning is in progress ; patient on antibiotics Patient will follow up with GI Services in 1-2 weeks I will arrange an outpatient elective endoscopy and colonoscopy for screening Continue stool softeners increase fluid and fiber intake and antibiotis Continue PPI, avoid aspirin and NSAIDs Plan discussed with: Other (Arleen North and Dr Brice) ASHLEE VALDEZ MD Dec 10, 2024 13:07
[2024-12-10 14:51] VITALS: BP 110/71; PULSE 70; RESP 20; TEMP 37.3
== END 2024-12-10 16:30 | disposition home or self-care (01) | DRG 392 ==
LOC: EDBD 18:45 → ER 18:45 → OVERFLOW 23:01 → WEST WING 12-06 21:39
PROVIDERS: ADMIT Family Medicine; ATTEND Family Medicine
DX: K57.32 Diverticulitis of large intestine without perforation or abscess without bleeding (principal); Z68.43 Body mass index [BMI] 50.0-59.9, adult; K29.00 Acute gastritis without bleeding; E11.9 Type 2 diabetes mellitus without complications; K59.00 Constipation, unspecified; I10 Essential (primary) hypertension; E66.01 Morbid (severe) obesity due to excess calories; M79.18 Myalgia, other site; K21.9 Gastro-esophageal reflux disease without esophagitis; M51.369 Other intervertebral disc degeneration, lumbar region without mention of lumbar back pain or lower extremity pain; I69.30 Unspecified sequelae of cerebral infarction; Z98.51 Tubal ligation status
CPT/HCPCS: 36415; 74176; 80048; 80053; 80076; 81003; 82306; 82607; 82962; 83036; 83605; 83690; 83735; 84100; 84443; 85025; 96372; G0378; J1815; J1885; J1956; J2405; J2470; J3490